=== PATIENT | female | born 1960 | race American Indian/Alaskan Native ===

== ENCOUNTER 2020-03-11 08:13 | Emergency (ER) | payer SELFPAY ==
--- NOTE | 2020-03-11 09:27 | Emergency Department Report ---
ED General Adult HPI - General Chief complaint: High BP Stated complaint: BACK PAIN Time Seen by Provider: 03/11/20 08:56 Source: patient Mode of arrival: Ambulatory Limitations: No Limitations - History of Present Illness Initial comments: This is a 59-year-old lady who came to the emergency department today because [facility] advised her since she does not live in the [facility] anymore she was in eligible for primary care through their clinic system. She states that she has had lower back pain intermittently since 2018. She had an MRI at that time which showed chronic spondylosis and some facet encroachment. She was managed by a chiropractor. She states she went to rehab. She denies any acute exacerbation of her chronic lower back pain. She denies any sensory or motor impairment chronically or acutely. She is fully able to ambulate. She really has no other specific complaint other than a lack of primary care and chronic intermittent low back pain. Patient states that she has been "rationing her medication" because she does not have a primary care doctor. Not withstanding that she does present to the emergency department with largely full bottles of medication. She has a history of hypertension and apparently type 2 diabetes on metformin. -: Gradual Location: back Radiation: non-radiation Quality: aching Consistency: constant, now resolved Improves with: none Worsens with: none Associated Symptoms: denies other symptoms Treatments Prior to Arrival: none - Related Data Home Medications Medication Instructions Recorded Confirmed Last Taken Aspirin [Adult Aspirin] 81 mg PO DAILY 03/11/20 03/11/20 Unknown Cholecalciferol Vit D3 [Vitamin D3 1,000 unit PO QDAY 03/11/20 03/11/20 Unknown 1,000 UNIT TAB] Esomeprazole Magnesium [Nexium 20 mg PO DAILY 03/11/20 03/11/20 Unknown 24Hr] Metformin HCl [metFORMIN] 1,000 mg PO BID 03/11/20 03/11/20 Unknown amLODIPine [Norvasc] 10 mg PO DAILY 03/11/20 03/11/20 Unknown atenoloL [Tenormin] 25 mg PO DAILY 03/11/20 03/11/20 Unknown lisinopriL [Zestril TAB] 40 mg PO QDAY 03/11/20 03/11/20 Unknown Previous Rx's Medication Instructions Recorded Last Taken Type traMADoL [Ultram 50 MG tab] 50 mg PO Q6HR PRN #10 tablet 03/11/20 Unknown Rx Allergies Allergy/AdvReac Type Severity Reaction Status Date / Time No Known Allergies Allergy Unverified 03/11/20 09:03 ED Review of Systems ROS: Stated complaint: BACK PAIN Other details as noted in HPI Constitutional: denies: chills, fever Eyes: denies: eye pain, eye discharge, vision change ENT: denies: ear pain, throat pain Respiratory: denies: cough, shortness of breath, wheezing Cardiovascular: denies: chest pain, palpitations Endocrine: no symptoms reported Gastrointestinal: denies: abdominal pain, nausea, diarrhea Genitourinary: denies: urgency, dysuria, discharge Musculoskeletal: back pain. denies: joint swelling, arthralgia Skin: denies: rash, lesions Neurological: denies: headache, weakness, paresthesias Psychiatric: denies: anxiety, depression Hematological/Lymphatic: denies: easy bleeding, easy bruising ED Past Medical Hx - Past Medical History Hx Hypertension: Yes Hx Diabetes: Yes - Social History Smoking Status: Current Every Day Smoker Substance Use Type: None - Medications Home Medications: Home Medications Medication Instructions Recorded Confirmed Last Taken Type Aspirin [Adult Aspirin] 81 mg PO DAILY 03/11/20 03/11/20 Unknown History Cholecalciferol Vit D3 [Vitamin D3 1,000 unit PO QDAY 03/11/20 03/11/20 Unknown History 1,000 UNIT TAB] Esomeprazole Magnesium [Nexium 20 mg PO DAILY 03/11/20 03/11/20 Unknown History 24Hr] Metformin HCl [metFORMIN] 1,000 mg PO BID 03/11/20 03/11/20 Unknown History amLODIPine [Norvasc] 10 mg PO DAILY 03/11/20 03/11/20 Unknown History atenoloL [Tenormin] 25 mg PO DAILY 03/11/20 03/11/20 Unknown History lisinopriL [Zestril TAB] 40 mg PO QDAY 03/11/20 03/11/20 Unknown History traMADoL [Ultram 50 MG tab] 50 mg PO Q6HR PRN #10 tablet 03/11/20 Unknown Rx ED Physical Exam - General Limitations: No Limitations General appearance: alert, in no apparent distress - Head Head exam: Present: atraumatic, normocephalic - Eye Eye exam: Present: normal appearance. Absent: scleral icterus - ENT ENT exam: Present: mucous membranes moist - Neck Neck exam: Present: normal inspection - Respiratory Respiratory exam: Present: normal lung sounds bilaterally. Absent: respiratory distress - Cardiovascular Cardiovascular Exam: Present: regular rate, normal rhythm. Absent: systolic murmur, diastolic murmur, rubs, gallop - GI/Abdominal GI/Abdominal exam: Present: soft, normal bowel sounds. Absent: distended, tenderness, guarding, rebound, rigid - Extremities Exam Extremities exam: Present: normal inspection, other (Straight leg raise is negative bilaterally). Absent: pedal edema, joint swelling, calf tenderness - Back Exam Back exam: Present: normal inspection, full ROM (Grossly normal). Absent: tenderness, CVA tenderness (R), CVA tenderness (L), muscle spasm, paraspinal tenderness, vertebral tenderness - Neurological Exam Neurological exam: Present: alert, oriented X3 - Psychiatric Psychiatric exam: Present: normal affect, normal mood - Skin Skin exam: Present: warm, dry, intact, normal color. Absent: rash ED Course Vital Signs 03/11/20 03/11/20 03/11/20 08:16 09:05 09:45 Temperature 97.2 F L Pulse Rate 75 63 58 L Respiratory 18 17 17 Rate Blood Pressure 227/104 Blood Pressure 227/104 188/100 163/83 [Right] O2 Sat by Pulse 100 100 100 Oximetry - Reevaluation(s) Reevaluation #1: Blood pressure spontaneously improved outside the acute reduction range. 03/11/20 09:31 ED Medical Decision Making - Lab Data Result diagrams: 03/11/20 09:13 03/11/20 09:13 Laboratory Results - last 24 hr 03/11/20 03/11/20 09:13 09:13 WBC 5.1 RBC 4.39 Hgb 14.1 Hct 40.9 MCV 93 MCH 32 MCHC 35 H RDW 12.7 L Plt Count 147 Lymph % (Auto) 42.9 H [place] % (Auto) 6.5 Eos % (Auto) 2.9 Baso % (Auto) 1.0 Lymph # 2.2 [place] # 0.3 Eos # 0.1 Baso # 0.0 Seg Neutrophils % 46.7 Seg Neutrophils # 2.4 Sodium 140 Potassium 4.2 Chloride 102.9 Carbon Dioxide 25 Anion Gap 16 BUN 26 H Creatinine 1.2 Estimated GFR 55 BUN/Creatinine Ratio 22 Glucose 116 H Calcium 10.1 Total Bilirubin 0.30 Direct Bilirubin < 0.2 Indirect Bilirubin 0.1 AST 20 ALT 20 Alkaline Phosphatase 86 Total Protein 7.2 Albumin 4.0 Albumin/Globulin Ratio 1.3 - EKG Data -: EKG Interpreted by Me EKG shows normal: sinus rhythm, axis, intervals, QRS complexes, ST-T waves Rate: normal - EKG Data Interpretation: nonspecific ST-T wave glo, LVH (suggested) Critical care attestation.: If time is entered above; I have spent that time in minutes in the direct care of this critically ill patient, excluding procedure time. ED Disposition Clinical Impression: Poorly-controlled hypertension Chronic lower back pain Qualifiers: Back pain laterality: unspecified Sciatica presence: without sciatica Qualified Code(s): M54.5 - Low back pain; G89.29 - Other chronic pain Disposition: DC-01 TO HOME OR SELFCARE Is pt being admited?: No Does the pt Need Aspirin: No Condition: Stable Instructions: Hypertension (ED), Back Pain (ED) Prescriptions: traMADoL [Ultram 50 MG tab] 50 mg PO Q6HR PRN #10 tablet PRN Reason: Pain Referrals: [facility] [Provider Group] - 3-5 Days Time of Disposition: 11:34
[2020-03-11] MEDS ORDERED: traMADol 50 MG TAB PO ONE (09:32)
[2020-03-11 09:42] LABS: Eosinophils # (Auto) 0.1 K/mm3 (0.0-0.4); Eosinophils % (Auto) 2.9 % (0.0-4.3); Hematocrit 40.9 % (30.3-42.9); Hemoglobin 14.1 gm/dl (10.1-14.3); Lymphocytes # (Auto) 2.2 K/mm3 (1.2-5.4); Lymphocytes % (Auto) 42.9 % (13.4-35.0); Mean Corpuscular HGB Conc 35 % (30-34); Mean Corpuscular Volume 93 fl (79-97); Monocytes # (Auto) 0.3 K/mm3 (0.0-0.8); Monocytes % (Auto) 6.5 % (0.0-7.3); Platelet Count 147 K/mm3 (140-440); Red Blood Count 4.39 M/mm3 (3.65-5.03); Red Cell Distribution Width 12.7 % (13.2-15.2)
--- NOTE | 2020-03-11 09:43 | XRay Report ---
CHEST 1 VIEW INDICATION: hypertension. COMPARISON: None FINDINGS: Support devices: None. Heart: Within normal limits. Lungs/Pleura: No acute air space or interstitial disease. Additional findings: None. IMPRESSION: No acute findings. Signer Name: Roger Spencer Jr, MD Signed: 03/11/2020 9:39 AM Workstation Name: [id number]
[2020-03-11 09:56] LABS: Alanine Aminotransferase 20 units/L (7-56); BUN/Creatinine Ratio 22; Bilirubin,Direct < 0.2 mg/dL (0-0.2); Blood Urea Nitrogen 26 mg/dL (7-17); Calcium 10.1 mg/dL (8.4-10.2); Hemolysis Index 5
[2020-03-11 11:50] VITALS: BP 172/83
== END 2020-03-11 11:50 | disposition home or self-care (01) ==
LOC: ED 08:13
DX: I10 Essential (primary) hypertension (principal); M54.5 Low back pain; G89.29 Other chronic pain; E11.9 Type 2 diabetes mellitus without complications; F17.200 Nicotine dependence, unspecified, uncomplicated; Z79.899 Other long term (current) drug therapy
CPT/HCPCS: 36415; 71045; 80048; 80076; 85025; 93005

== ENCOUNTER 2021-02-22 17:24 | Emergency (ER) | payer SELFPAY ==
[2021-02-22 23:15] LABS: Basophils # (Auto) 0.1 K/mm3 (0.0-0.1); Basophils % (Auto) 1.6 % (0.0-1.8); Eosinophils # (Auto) 0.1 K/mm3 (0.0-0.4); Eosinophils % (Auto) 2.4 % (0.0-4.3); Hematocrit 43.6 % (30.3-42.9); Hemoglobin 15.5 gm/dl (10.1-14.3); Lymphocytes # (Auto) 1.7 K/mm3 (1.2-5.4); Lymphocytes % (Auto) 31.2 % (13.4-35.0); Mean Corpuscular HGB Conc 35 % (30-34); Mean Corpuscular Volume 92 fl (79-97); Monocytes # (Auto) 0.4 K/mm3 (0.0-0.8); Platelet Count 164 K/mm3 (140-440); Red Blood Count 4.74 M/mm3 (3.65-5.03); Red Cell Distribution Width 12.6 % (13.2-15.2)
[2021-02-22 23:34] LABS: Calcium 10.3 mg/dL (8.4-10.2)
--- NOTE | 2021-02-22 23:39 | Emergency Department Report ---
ED General Adult HPI - General Chief complaint: Skin/Abscess/Foreign Body Stated complaint: (R) TOE BLISTER Time Seen by Provider: 02/22/21 21:38 Source: patient Mode of arrival: Ambulatory Limitations: No Limitations - History of Present Illness Initial comments: This is a 60-year-old female nontoxic, well nourished in appearance, no acute signs of distress presents to the ED with c/o of right in between fourth and fifth toe tinea pedis with some pain. Patient denies any trauma or injuries. Stated has this for the past 3 weeks. Otherwise denies any other complaints or symptoms. Patient denies any upper respiratory symptoms. Patient denies any shortness of breath, hemoptysis, fever, chills, nausea, vomiting, headache, stiff neck, numbness, tingling, abdominal pain. Patient denies any recent travels or long car rides. Patient denies any recent surgeries or any sick contacts. Patient denies any drug allergies. Patient stated has past medical history of DM and hypertension but not been taking her blood pressure and metformin medication for the past 2 weeks. -: week(s) Radiation: non-radiation Severity scale (0 -10): 0 Consistency: constant Improves with: none Worsens with: none Associated Symptoms: denies other symptoms. denies: confusion, chest pain, co ugh, diaphoresis, fever/chills, headaches, loss of appetite, malaise, nausea/vomiting, rash, seizure, shortness of breath, syncope, weakness Treatments Prior to Arrival: none - Related Data Home Medications Medication Instructions Recorded Confirmed Last Taken Aspirin [Adult Aspirin] 81 mg PO DAILY 03/11/20 03/11/20 Unknown Cholecalciferol Vit D3 [Vitamin D3 1,000 unit PO QDAY 03/11/20 03/11/20 Unknown 1,000 UNIT TAB] Esomeprazole Magnesium [Nexium 20 mg PO DAILY 03/11/20 03/11/20 Unknown 24Hr] amLODIPine [Norvasc] 10 mg PO DAILY 03/11/20 03/11/20 Unknown atenoloL [Tenormin] 25 mg PO DAILY 03/11/20 03/11/20 Unknown lisinopriL [Zestril TAB] 40 mg PO QDAY 03/11/20 03/11/20 Unknown Previous Rx's Medication Instructions Recorded Last Taken Type traMADoL [Ultram 50 MG tab] 50 mg PO Q6HR PRN #10 tablet 03/11/20 Unknown Rx Chlorthalidone [Thalitone] 25 mg PO QDAY #30 tablet 02/22/21 Unknown Rx Metformin HCl [metFORMIN] 1,000 mg PO BID #60 tab 02/22/21 Unknown Rx atenoloL [Tenormin] 25 mg PO DAILY #30 tab 02/22/21 Unknown Rx lisinopriL [Zestril TAB] 40 mg PO QDAY #30 tablet 02/22/21 Unknown Rx Clotrimazole 1%(Nf) [Lotrimin 1 applicatio TP BID #1 bottle 02/23/21 Unknown Rx Lotion] Allergies Allergy/AdvReac Type Severity Reaction Status Date / Time No Known Allergies Allergy Verified 02/22/21 20:45 ED Review of Systems ROS: Stated complaint: (R) TOE BLISTER Other details as noted in HPI Comment: All other systems reviewed and negative Constitutional: denies: chills, fever Eyes: denies: eye pain, eye discharge, vision change ENT: denies: ear pain, throat pain Respiratory: denies: cough, shortness of breath, wheezing Cardiovascular: denies: chest pain, palpitations Endocrine: no symptoms reported Gastrointestinal: denies: abdominal pain, nausea, diarrhea Genitourinary: denies: urgency, dysuria, discharge Musculoskeletal: denies: back pain, joint swelling, arthralgia Skin: denies: rash, lesions Neurological: denies: headache, weakness, paresthesias Psychiatric: denies: anxiety, depression Hematological/Lymphatic: denies: easy bleeding, easy bruising ED Past Medical Hx - Past Medical History Previous Medical History?: Yes Hx Hypertension: Yes Hx Diabetes: Yes - Social History Smoking Status: Current Every Day Smoker Substance Use Type: None - Medications Home Medications: Home Medications Medication Instructions Recorded Confirmed Last Taken Type Aspirin [Adult Aspirin] 81 mg PO DAILY 03/11/20 03/11/20 Unknown History Cholecalciferol Vit D3 [Vitamin D3 1,000 unit PO QDAY 03/11/20 03/11/20 Unknown History 1,000 UNIT TAB] Esomeprazole Magnesium [Nexium 20 mg PO DAILY 03/11/20 03/11/20 Unknown History 24Hr] amLODIPine [Norvasc] 10 mg PO DAILY 03/11/20 03/11/20 Unknown History atenoloL [Tenormin] 25 mg PO DAILY 03/11/20 03/11/20 Unknown History lisinopriL [Zestril TAB] 40 mg PO QDAY 03/11/20 03/11/20 Unknown History traMADoL [Ultram 50 MG tab] 50 mg PO Q6HR PRN #10 tablet 03/11/20 Unknown Rx Chlorthalidone [Thalitone] 25 mg PO QDAY #30 tablet 02/22/21 Unknown Rx Metformin HCl [metFORMIN] 1,000 mg PO BID #60 tab 02/22/21 Unknown Rx atenoloL [Tenormin] 25 mg PO DAILY #30 tab 02/22/21 Unknown Rx lisinopriL [Zestril TAB] 40 mg PO QDAY #30 tablet 02/22/21 Unknown Rx Clotrimazole 1%(Nf) [Lotrimin 1 applicatio TP BID #1 bottle 02/23/21 Unknown Rx Lotion] ED Physical Exam - General Limitations: No Limitations General appearance: alert, in no apparent distress - Head Head exam: Present: atraumatic, normocephalic - Eye Eye exam: Present: normal appearance - Neck Neck exam: Present: normal inspection, full ROM. Absent: tenderness, meningismus, lymphadenopathy - Respiratory Respiratory exam: Present: normal lung sounds bilaterally. Absent: respiratory distress, wheezes, rales, rhonchi, stridor, chest wall tenderness, accessory muscle use, decreased breath sounds, prolonged expiratory - Cardiovascular Cardiovascular Exam: Present: regular rate, normal rhythm, normal heart sounds. Absent: bradycardia, tachycardia, irregular rhythm, systolic murmur, diastolic murmur, rubs, gallop - GI/Abdominal GI/Abdominal exam: Present: soft, normal bowel sounds. Absent: distended, tenderness, guarding, rebound, rigid, diminished bowel sounds - Extremities Exam Extremities exam: Present: normal inspection, full ROM, normal capillary refill, other (right scaly rash with itching to right between 4th and 5th. no cellulitis or abscess. no swelling. non tenderness.). Absent: tenderness, joint swelling - Back Exam Back exam: Present: normal inspection, full ROM. Absent: tenderness, CVA tenderness (R), CVA tenderness (L), muscle spasm, paraspinal tenderness, vertebral tenderness, rash noted - Neurological Exam Neurological exam: Present: alert, oriented X3, normal gait - Psychiatric Psychiatric exam: Present: normal affect, normal mood - Skin Skin exam: Present: warm, dry, intact, normal color. Absent: rash ED Course Vital Signs 02/22/21 02/23/21 02/23/21 20:46 00:58 01:00 Temperature 98.0 F Pulse Rate 88 80 80 Respiratory 18 20 Rate Blood Pressure 230/132 185/90 Blood Pressure 185/90 [Left] O2 Sat by Pulse 98 99 Oximetry 02/23/21 02/23/21 01:05 01:30 Temperature 98.6 F Pulse Rate 80 86 Respiratory 20 Rate Blood Pressure 185/90 Blood Pressure 152/82 [Left] O2 Sat by Pulse 100 Oximetry - Reevaluation(s) Reevaluation #1: 02/22/21 23:40 Patient is speaking in full sentences with no signs of distress noted. - Consultations Consultation #1: 02/22/21 23:52 Patient has been consulted with Louis Ronquillo about patient history, physical exam, and labs and agrees to ED plan of care with repeat finger stick after treatment. Consultation #2: 02/23/21 01:31 Patient has been consulted with Louis Ronquillo about labs with repeat glucose and vitals and patient can be discharged with follow-up. ED Medical Decision Making - Lab Data Result diagrams: 02/22/21 22:34 02/22/21 22:34 Lab Results 02/22/21 02/22/21 02/23/21 Range/Units 22:34 22:34 00:47 WBC 5.5 (4.5-11.0) K/mm3 RBC 4.74 (3.65-5.03) M/mm3 Hgb 15.5 H (10.1-14.3) gm/dl Hct 43.6 H (30.3-42.9) % MCV 92 (79-97) fl MCH 33 H (28-32) pg MCHC 35 H (30-34) % RDW 12.6 L (13.2-15.2) % Plt Count 164 (140-440) K/mm3 Lymph % (Auto) 31.2 (13.4-35.0) % [place] % (Auto) 7.0 (0.0-7.3) % Eos % (Auto) 2.4 (0.0-4.3) % Baso % (Auto) 1.6 (0.0-1.8) % Lymph # (Auto) 1.7 (1.2-5.4) K/mm3 [place] # (Auto) 0.4 (0.0-0.8) K/mm3 Eos # (Auto) 0.1 (0.0-0.4) K/mm3 Baso # (Auto) 0.1 (0.0-0.1) K/mm3 Seg Neutrophils % 57.8 (40.0-70.0) % Seg Neutrophils # 3.2 (1.8-7.7) K/mm3 VBG pH 7.459 H (7.320-7.420) Sodium 134 L (137-145) mmol/L Potassium 4.5 (3.6-5.0) mmol/L Chloride 96.8 L (98-107) mmol/L Carbon Dioxide 24 (22-30) mmol/L Anion Gap 18 mmol/L BUN 18 H (7-17) mg/dL Creatinine 1.2 (0.6-1.2) mg/dL Estimated GFR 55 ml/min BUN/Creatinine Ratio 15 % Glucose 575 H* (65-100) mg/dL POC Glucose (70-105) mg/dL Calcium 10.3 H (8.4-10.2) mg/dL 02/23/21 Range/Units 01:26 WBC (4.5-11.0) K/mm3 RBC (3.65-5.03) M/mm3 Hgb (10.1-14.3) gm/dl Hct (30.3-42.9) % MCV (79-97) fl MCH (28-32) pg MCHC (30-34) % RDW (13.2-15.2) % Plt Count (140-440) K/mm3 Lymph % (Auto) (13.4-35.0) % [place] % (Auto) (0.0-7.3) % Eos % (Auto) (0.0-4.3) % Baso % (Auto) (0.0-1.8) % Lymph # (Auto) (1.2-5.4) K/mm3 [place] # (Auto) (0.0-0.8) K/mm3 Eos # (Auto) (0.0-0.4) K/mm3 Baso # (Auto) (0.0-0.1) K/mm3 Seg Neutrophils % (40.0-70.0) % Seg Neutrophils # (1.8-7.7) K/mm3 VBG pH (7.320-7.420) Sodium (137-145) mmol/L Potassium (3.6-5.0) mmol/L Chloride (98-107) mmol/L Carbon Dioxide (22-30) mmol/L Anion Gap mmol/L BUN (7-17) mg/dL Creatinine (0.6-1.2) mg/dL Estimated GFR ml/min BUN/Creatinine Ratio % Glucose (65-100) mg/dL POC Glucose 349 H (70-105) mg/dL Calcium (8.4-10.2) mg/dL - Medical Decision Making This is a 60-year-old female that presents with tinea pedis and noncompliant with hypertension medication. Patient is stable and was examined by me. There is no induration, fluctuance. No signs of abscess formation. Patient educated of hypertension and to take medication as prescribed. Instructed to take blood pressure 3 times daily and presented to primary care doctor in a diary. Labs has been obtained to rule out hypertensive emergency. Patient is notified of the lab results with no questions noted by the patient. Patient stated has been taking Chlorthelidone 25 mg daily, Atenolol 25 mg daily, and Lisinopril 40 mg daily. Patient received her dosage of her medications with IV insulin and normal saline in the ED. Repeat Finger stick decreased prior to discharge. Consulted with Louis Ronquillo and agrees to the ED plan of care and discharge with follow-up. According to ACEP: (1) in ED patients with asymptomatic marke dly elevated blood pressure, routine screening for acute target organ injury (eg, serum creatinine, urinalysis, ECG) is not required. (1) In patients with asymptomatic markedly elevated blood pressure, routine ED medical intervention is not required. Patient was referred to Follow-up with a primary care doctor in 3-5 days or if symptoms worsen and continue return to emergency room as soon as possible. At time of discharge, the patient does not seem toxic or ill in appearance. No acute signs of distress noted. Patient agrees to discharge treatment plan of care. No further questions noted by the patient. Critical care attestation.: If time is entered above; I have spent that time in minutes in the direct care of this critically ill patient, excluding procedure time. ED Disposition Clinical Impression: Tinea pedis of right foot, Noncompliance with medication regimen, Hyperglycemia HTN (hypertension) Qualifiers: Hypertension type: unspecified Qualified Code(s): I10 - Essential (primary) hypertension Diabetes mellitus Qualifiers: Diabetes mellitus type: type 2 Diabetes mellitus retirement insulin use: without retirement use Diabetes mellitus complication status: without complication Qualified Code(s): E11.9 - Type 2 diabetes mellitus without complications Disposition: 01 HOME / SELF CARE / HOMELESS Is pt being admited?: No Does the pt Need Aspirin: No Condition: Stable Instructions: Hypertension, Adult, [id number], Athlete's Foot, Diabetes Mellitus Type 2 in Adults (ED), Hypertension (ED) Additional Instructions: Follow-up with a primary care doctor in 3-5 days or if symptoms worsen and continue return to emergency room as soon as possible. Prescriptions: Clotrimazole 1%(Nf) [Lotrimin Lotion] 1 applicatio TP BID #1 bottle Metformin HCl [metFORMIN] 1,000 mg PO BID #60 tab atenoloL [Tenormin] 25 mg PO DAILY #30 tab Chlorthalidone [Thalitone] 25 mg PO QDAY #30 tablet lisinopriL [Zestril TAB] 40 mg PO QDAY #30 tablet Referrals: PRIMARY CAREMD [Referring] - 3-5 Days MIKE TAPIA MD [Staff Physician] - 3-5 Days Forms: Work/School Release Form(ED) Time of Disposition: 01:32
[2021-02-23] MEDS: SODIUM CHLORIDE 0.9% 1000 ML 1,000 ML IV ONE (00:59)
[2021-02-23] MEDS: INSULIN REGULAR, HUMAN 100 UNITS/1 ML IV ONE (01:00)
[2021-02-23 01:31] VITALS: BP 152/82
[2021-02-23] MEDS: atenoloL 25 MG TAB PO ONE (01:59)
[2021-02-23] MEDS: LISINOPRIL 20 MG TAB PO ONE (02:00)
[2021-02-23] MEDS: CHLORTHALIDONE 25 MG TAB PO ONE (02:00)
== END 2021-02-23 02:09 | disposition home or self-care (01) ==
LOC: ED 17:24
DX: B35.3 Tinea pedis (principal); I10 Essential (primary) hypertension; E11.65 Type 2 diabetes mellitus with hyperglycemia; F17.200 Nicotine dependence, unspecified, uncomplicated; Z79.82 Long term (current) use of aspirin; Z79.899 Other long term (current) drug therapy
CPT/HCPCS: 36415; 80048; 82805; 82962; 85025; 96361; 96374; 96375; 99283; J7030; J1815

== ENCOUNTER 2021-06-17 18:28 | Inpatient (IN) | payer OTHER ==
--- NOTE | 2021-06-17 18:44 | Emergency Department Report ---
ED General Adult HPI - General Chief complaint: Neuro Symptoms/Deficit Stated complaint: My mouth was twisted PUI?: No Time Seen by Provider: 06/17/21 18:40 Source: patient, RN notes reviewed, old records reviewed Mode of arrival: Ambulatory Limitations: No Limitations - History of Present Illness Initial comments: The patient was evaluated in the emergency department for symptoms described in the history of present illness. He/she was evaluated in the context of the global COVID-19 pandemic, which necessitated consideration that the patient might be at risk for infection with the virus that causes COVID-19. Institutional protocols and algorithms that pertain to the evaluation of patients at risk for COVID-19 are in a state of rapid change based on information released by regulatory bodies including the CDC and federal and state organizations. These policies and algorithms were followed during the patient's care in the emergency department. Please note that these policies, procedures and recommendations changed on a rapid basis. The patient is a 60-year-old female. She is not known to myself previously. S he is COVID-19 vaccinated. She reports her past medical history includes hypertension, tobacco use, and diabetes. She presents to the ER today with a complaint of feeling like her mouth was twisted. She reports that she felt like she noticed this after waking up at approximately 4:00 in the morning. It is now resolved. She denies physical pain. She feels like she is back to her baseline. She denies Covid symptoms. -: hour(s) Severity scale (0 -10): 0 Consistency: now resolved Improves with: none Worsens with: none - Related Data Home Medications Medication Instructions Recorded Confirmed Last Taken Aspirin [Adult Aspirin] 81 mg PO DAILY 03/11/20 03/11/20 Unknown Cholecalciferol Vit D3 [Vitamin D3 1,000 unit PO QDAY 03/11/20 03/11/20 Unknown 1,000 UNIT TAB] Esomeprazole Magnesium [Nexium 20 mg PO DAILY 03/11/20 03/11/20 Unknown 24Hr] amLODIPine [Norvasc] 10 mg PO DAILY 03/11/20 03/11/20 Unknown atenoloL [Tenormin] 25 mg PO DAILY 03/11/20 03/11/20 Unknown lisinopriL [Zestril TAB] 40 mg PO QDAY 03/11/20 03/11/20 Unknown Previous Rx's Medication Instructions Recorded Last Taken Type traMADoL [Ultram 50 MG tab] 50 mg PO Q6HR PRN #10 tablet 03/11/20 Unknown Rx Chlorthalidone [Thalitone] 25 mg PO QDAY #30 tablet 02/22/21 Unknown Rx Metformin HCl [metFORMIN] 1,000 mg PO BID #60 tab 02/22/21 Unknown Rx atenoloL [Tenormin] 25 mg PO DAILY #30 tab 02/22/21 Unknown Rx lisinopriL [Zestril TAB] 40 mg PO QDAY #30 tablet 02/22/21 Unknown Rx Clotrimazole 1%(Nf) [Lotrimin 1 applicatio TP BID #1 bottle 02/23/21 Unknown Rx Lotion] Allergies Allergy/AdvReac Type Severity Reaction Status Date / Time No Known Allergies Allergy Verified 02/22/21 20:45 ED Review of Systems ROS: Stated complaint: WEAKNESS Other details as noted in HPI Constitutional: denies: fever Eyes: denies: eye discharge, vision change ENT: denies: epistaxis Respiratory: other (Chronic cough) Cardiovascular: denies: chest pain Gastrointestinal: denies: abdominal pain Neurological: denies: weakness ED Past Medical Hx - Past Medical History Hx Hypertension: Yes Hx Diabetes: Yes - Social History Smoking Status: Current Every Day Smoker Substance Use Type: None - Medications Home Medications: Home Medications Medication Instructions Recorded Confirmed Last Taken Type Aspirin [Adult Aspirin] 81 mg PO DAILY 03/11/20 03/11/20 Unknown History Cholecalciferol Vit D3 [Vitamin D3 1,000 unit PO QDAY 03/11/20 03/11/20 Unknown History 1,000 UNIT TAB] Esomeprazole Magnesium [Nexium 20 mg PO DAILY 03/11/20 03/11/20 Unknown History 24Hr] amLODIPine [Norvasc] 10 mg PO DAILY 03/11/20 03/11/20 Unknown History atenoloL [Tenormin] 25 mg PO DAILY 03/11/20 03/11/20 Unknown History lisinopriL [Zestril TAB] 40 mg PO QDAY 03/11/20 03/11/20 Unknown History traMADoL [Ultram 50 MG tab] 50 mg PO Q6HR PRN #10 tablet 03/11/20 Unknown Rx Chlorthalidone [Thalitone] 25 mg PO QDAY #30 tablet 02/22/21 Unknown Rx Metformin HCl [metFORMIN] 1,000 mg PO BID #60 tab 02/22/21 Unknown Rx atenoloL [Tenormin] 25 mg PO DAILY #30 tab 02/22/21 Unknown Rx lisinopriL [Zestril TAB] 40 mg PO QDAY #30 tablet 02/22/21 Unknown Rx Clotrimazole 1%(Nf) [Lotrimin 1 applicatio TP BID #1 bottle 02/23/21 Unknown Rx Lotion] ED Physical Exam - General Limitations: No Limitations General appearance: alert, in no apparent distress - Head Head exam: Present: atraumatic, normocephalic - Eye Eye exam: Present: normal appearance, EOMI. Absent: nystagmus - ENT ENT exam: Present: normal exam, normal orophraynx, mucous membranes moist, normal external ear exam - Neck Neck exam: Present: normal inspection, full ROM. Absent: tenderness, meningismus - Respiratory Respiratory exam: Present: normal lung sounds bilaterally. Absent: respiratory distress, wheezes, rales, rhonchi, stridor, decreased breath sounds - Cardiovascular Cardiovascular Exam: Present: normal rhythm, bradycardia, normal heart sounds. Absent: tachycardia, irregular rhythm, systolic murmur, diastolic murmur, rubs, gallop - GI/Abdominal GI/Abdominal exam: Present: soft. Absent: distended, tenderness, guarding, pulsatile mass - Extremities Exam Extremities exam: Present: normal inspection, full ROM, other (2+ pulses noted in the bilateral upper and lower extremities. There is no palpable cord. negative Homans sign. Muscular compartments are soft. The pelvis is stable.). Absent: pedal edema, calf tenderness - Back Exam Back exam: Present: normal inspection, full ROM. Absent: tenderness, CVA tenderness (R), CVA tenderness (L), paraspinal tenderness, vertebral tenderness - Neurological Exam Neurological exam: Present: alert, oriented X3, normal gait, other (No facial droop. Tongue midline. Extraocular movements intact bilaterally. Facial sensation intact to light touch in V1, V2, V3 distribution bilaterally. 5 and a 5 strength in 4 extremities. Sensation intact to light touch in 4 extremities.). Absent: motor sensory deficit - Psychiatric Psychiatric exam: Present: flat affect - Skin Skin exam: Present: warm, dry, intact, normal color. Absent: rash ED Course Vital Signs 06/17/21 06/17/21 06/17/21 18:34 18:46 19:19 Temperature 98.6 F 98.3 F Pulse Rate 77 67 Respiratory 20 16 Rate Blood Pressure 191/93 159/88 [Right] O2 Sat by Pulse 10 L 97 Oximetry 06/17/21 19:45 Temperature Pulse Rate 70 Respiratory 13 Rate Blood Pressure 187/89 [Right] O2 Sat by Pulse 96 Oximetry - Reevaluation(s) Reevaluation #1: 06/17/21 20:35 Differential diagnosis, including but not limited to: Stroke, TIA, pneumonia, urinary tract infection, thyroid derangement, electrolyte derangement, tobacco use, hyperglycemia, diabetic ketoacidosis, hyperosmolar state Assessment and plan: 60-year-old female, who was afebrile and hypertensive, clinically sober, with a GCS of 15, NIH score of 0, who presents to the ER with a primary complaint of feeling like her mouth is twisted, and perhaps having had a speech disturbance. I do not appreciate any neurologic deficits or abnormalities on my examination. Patient reports that her last known well time is more than 4.5 hours after perceived symptom onset, and therefore, she is not a TPA candidate. She currently has an NIH score of 0, and her history and physical examination are not consistent or suggestive of a large vessel occlusion. Laboratory studies pending. X-ray the chest reviewed and appreciated. Noncontrast CT scan of the brain shows no acute findings. I discussed the patient's history, physical, and clinical impression with neurology on-call, Dr. Mauro He is in agreement with the aforementioned rationale. Admission is recommended for medical optimization. Patient will be admitted to the medical service once initial diagnostics have resulted. Allow for permissive hypertension, treat for blood pressure systolic greater than 180 mmHg. 06/17/21 21:04 Laboratory studies demonstrate hyperglycemia without anion gap and renal insufficiency. IV fluids ordered. Insulin therapy ordered. To be admitted to the medical service for optimization and for TIA work-up/evaluation. Defer to the inpatient team to follow-up on urinalysis. Reevaluation #2: 06/17/21 21:[address] Luis Mckee of [facility] ED Medical Decision Making - Lab Data Result diagrams: 06/17/21 19:58 06/17/21 19:58 Vital Signs 06/17/21 06/17/21 06/17/21 18:34 18:46 19:19 Temperature 98.6 F 98.3 F Pulse Rate 77 67 Respiratory 20 16 Rate Blood Pressure 191/93 159/88 [Right] O2 Sat by Pulse 10 L 97 Oximetry 06/17/21 19:45 Temperature Pulse Rate 70 Respiratory 13 Rate Blood Pressure 187/89 [Right] O2 Sat by Pulse 96 Oximetry Lab Results 06/17/21 Range/Units 18:32 POC Glucose 459 H (70-105) mg/dL Lab Results 06/17/21 06/17/21 06/17/21 Range/Units 18:32 19:58 19:58 WBC 6.0 (4.5-11.0) K/mm3 RBC 4.42 (3.65-5.03) M/mm3 Hgb 13.4 (10.1-14.3) gm/dl Hct 40.2 (30.3-42.9) % MCV 91 (79-97) fl MCH 30 (28-32) pg MCHC 33 (30-34) % RDW 12.7 L (13.2-15.2) % Plt Count 145 (140-440) K/mm3 Lymph % (Auto) 43.5 H (13.4-35.0) % Dougherty % (Auto) 5.9 (0.0-7.3) % Eos % (Auto) 1.8 (0.0-4.3) % Baso % (Auto) 0.6 (0.0-1.8) % Lymph # (Auto) 2.6 (1.2-5.4) K/mm3 Dougherty # (Auto) 0.4 (0.0-0.8) K/mm3 Eos # (Auto) 0.1 (0.0-0.4) K/mm3 Baso # (Auto) 0.0 (0.0-0.1) K/mm3 Seg Neutrophils % 48.2 (40.0-70.0) % Seg Neutrophils # 2.9 (1.8-7.7) K/mm3 PT 12.2 (12.2-14.9) Sec. INR 0.81 L (0.87-1.13) APTT 26.1 (24.2-36.6) Sec. Thrombin Time 17.6 (15.1-19.6) Sec. VBG pH (7.320-7.420) Sodium (137-145) mmol/L Potassium (3.6-5.0) mmol/L Chloride (98-107) mmol/L Carbon Dioxide (22-30) mmol/L Anion Gap mmol/L BUN (7-17) mg/dL Creatinine (0.6-1.2) mg/dL Estimated GFR ml/min BUN/Creatinine Ratio % Glucose (65-100) mg/dL POC Glucose 459 H (70-105) mg/dL Calcium (8.4-10.2) mg/dL Magnesium (1.7-2.3) mg/dL Total Bilirubin (0.1-1.2) mg/dL AST (5-40) units/L ALT (7-56) units/L Alkaline Phosphatase (35-129) units/L Total Creatine Kinase (30-135) units/L CK-MB (CK-2) (0.0-4.0) ng/mL CK-MB (CK-2) Rel Index (0-4) Troponin T (0.00-0.029) ng/mL Total Protein (6.3-8.2) g/dL Albumin (3.9-5) g/dL Albumin/Globulin Ratio % Plasma/Serum Alcohol (0-0.07) % 06/17/21 06/17/21 06/17/21 Range/Units 19:58 19:58 19:58 WBC (4.5-11.0) K/mm3 RBC (3.65-5.03) M/mm3 Hgb (10.1-14.3) gm/dl Hct (30.3-42.9) % MCV (79-97) fl MCH (28-32) pg MCHC (30-34) % RDW (13.2-15.2) % Plt Count (140-440) K/mm3 Lymph % (Auto) (13.4-35.0) % Dougherty % (Auto) (0.0-7.3) % Eos % (Auto) (0.0-4.3) % Baso % (Auto) (0.0-1.8) % Lymph # (Auto) (1.2-5.4) K/mm3 Dougherty # (Auto) (0.0-0.8) K/mm3 Eos # (Auto) (0.0-0.4) K/mm3 Baso # (Auto) (0.0-0.1) K/mm3 Seg Neutrophils % (40.0-70.0) % Seg Neutrophils # (1.8-7.7) K/mm3 PT (12.2-14.9) Sec. INR (0.87-1.13) APTT (24.2-36.6) Sec. Thrombin Time (15.1-19.6) Sec. VBG pH (7.320-7.420) Sodium 133 L (137-145) mmol/L Potassium 3.8 (3.6-5.0) mmol/L Chloride 98.7 (98-107) mmol/L Carbon Dioxide 22 (22-30) mmol/L Anion Gap 16 mmol/L BUN 21 H (7-17) mg/dL Creatinine 1.4 H (0.6-1.2) mg/dL Estimated GFR 46 ml/min BUN/Creatinine Ratio 15 % Glucose 492 H (65-100) mg/dL POC Glucose (70-105) mg/dL Calcium 9.3 (8.4-10.2) mg/dL Magnesium 1.90 (1.7-2.3) mg/dL Total Bilirubin 0.20 (0.1-1.2) mg/dL AST 18 (5-40) units/L ALT 27 (7-56) units/L Alkaline Phosphatase 119 (35-129) units/L Total Creatine Kinase 82 82 (30-135) units/L CK-MB (CK-2) 1.9 (0.0-4.0) ng/mL CK-MB (CK-2) Rel Index 2.3 (0-4) Troponin T 0.014 (0.00-0.029) ng/mL Total Protein 6.2 L (6.3-8.2) g/dL Albumin 3.3 L (3.9-5) g/dL Albumin/Globulin Ratio 1.1 % Plasma/Serum Alcohol < 0.01 (0-0.07) % 06/17/ Range/Units 19:58 WBC (4.5-11.0) K/mm3 RBC (3.65-5.03) M/mm3 Hgb (10.1-14.3) gm/dl Hct (30.3-42.9) % MCV (79-97) fl MCH (28-32) pg MCHC (30-34) % RDW (13.2-15.2) % Plt Count (140-440) K/mm3 Lymph % (Auto) (13.4-35.0) % Dougherty % (Auto) (0.0-7.3) % Eos % (Auto) (0.0-4.3) % Baso % (Auto) (0.0-1.8) % Lymph # (Auto) (1.2-5.4) K/mm3 Dougherty # (Auto) (0.0-0.8) K/mm3 Eos # (Auto) (0.0-0.4) K/mm3 Baso # (Auto) (0.0-0.1) K/mm3 Seg Neutrophils % (40.0-70.0) % Seg Neutrophils # (1.8-7.7) K/mm3 PT (12.2-14.9) Sec. INR (0.87-1.13) APTT (24.2-36.6) Sec. Thrombin Time (15.1-19.6) Sec. VBG pH 7.368 (7.320-7.420) Sodium (137-145) mmol/L Potassium (3.6-5.0) mmol/L Chloride (98-107) mmol/L Carbon Dioxide (22-30) mmol/L Anion Gap mmol/L BUN (7-17) mg/dL Creatinine (0.6-1.2) mg/dL Estimated GFR ml/min BUN/Creatinine Ratio % Glucose (65-100) mg/dL POC Glucose (70-105) mg/dL Calcium (8.4-10.2) mg/dL Magnesium (1.7-2.3) mg/dL Total Bilirubin (0.1-1.2) mg/dL AST (5-40) units/L ALT (7-56) units/L Alkaline Phosphatase (35-129) units/L Total Creatine Kinase (30-135) units/L CK-MB (CK-2) (0.0-4.0) ng/mL CK-MB (CK-2) Rel Index (0-4) Troponin T (0.00-0.029) ng/mL Total Protein (6.3-8.2) g/dL Albumin (3.9-5) g/dL Albumin/Globulin Ratio % Plasma/Serum Alcohol (0-0.07) % - EKG Data 06/17/21 20:33 The EKG is interpreted at 20: 11 Sinus rhythm, bradycardia, rate 59 bpm. Left axis deviation, left anterior fascicular block, early repolarization, left ventricular hypertrophy. QTC 4 6 3 ms. KS interval 124 ms. Abnormal EKG. Not a STEMI. - Radiology Data Radiology results: pending, report reviewed, image reviewed XR chest 1V ap INDICATION / CLINICAL INFORMATION: weakness. COMPARISON: None available. FINDINGS: SUPPORT DEVICES: None. HEART /PULMONARY VASCULATURE: No significant abnormality. LUNGS / PLEURA: Low lung volumes. No significant pulmonary or pleural abnormality. No pneumothorax. ADDITIONAL FINDINGS: No significant additional findings. IMPRESSION: 1. No acute findings. Signer Name: Josué Linares MD Signed: 06/17/2021 6:07 PM Workstation Name: [id number] CT BRAIN: 06/17/2021 INDICATION / CLINICAL INFORMATION: Stroke symptoms. No additional information provided COMPARISON: None available. FINDINGS: BRAIN/INTRACRANIAL STRUCTURES: Unenhanced CT images of the brain demonstrate no evidence of acute abnormality. Ventricles and sulci are slightly prominent in size, consistent with normal age-related atrophic change. There is no evidence of acute large vessel territory ischemic injury. Hypodensity in the left justin is present, consistent with subacute or chronic ischemic injury. There is a focal area of hypodensity present in the periphery of the cerebellar hemisphere, with the most likely chronic appearance. Chronic white matter hypoattenuation is present in the periventricular and deep white matter of cerebral hemispheres. There is no evidence of hemorrhage or mass. There are no abnormal extra-axial fluid collections. EXTRACRANIAL STRUCTURES: Unremarkable. IMPRESSION: No definite evidence of acute abnormality. Chronic appearing ischemic changes in the brainstem and cerebellum. No evidence of hemorrhage. Notification:Serotoff in the emergency department at [address] scans at this location are performed using dose reduction to ALARA by means of automated exposure control. Signer Name: Chuck Dave MD Signed: 06/17/2021 6:47 PM Critical care attestation.: If time is entered above; I have spent that time in minutes in the direct care of this critically ill patient, excluding procedure time. ED Disposition Clinical Impression: Hyperglycemia, TIA (transient ischemic attack), Renal insufficiency HTN (hypertension) Qualifiers: Hypertension type: unspecified Qualified Code(s): I10 - Essential (primary) hypertension Disposition: ADMITTED INPATIENT Is pt being admited?: Yes Does the pt Need Aspirin: Yes Condition: Good Instructions: Hypertension (ED) Referrals: PRIMARY CARE, [Primary Care Provider] - 3-5 Days - Assessment Assessment Interval: Baseline - Level of Consciousness 1a. Level of Consciousness: alert/keenly responsive - LOC Questions 1b. LOC Questions: answers both correctly - LOC Command 1c. LOC Commands: performs tasks correctly - Best Gaze 2. Best Gaze: normal - Visual 3. Visual: no visual loss - Facial Palsy 4. Facial Palsy: normal symmetrical movement - Motor Arm 5a. Motor Arm Left: no drift 5b. Motor Arm Right: no drift - Motor Leg 6a. Motor Leg Left: no drift 6b. Motor Leg Right: no drift - Limb Ataxia 7. Limb Ataxia: absent - Sensory 8. Sensory: normal - Best Language 9. Best Language: no aphasia - Dysarthria 10. Dysarthria: normal - Extinction and Inattention 11. Extinction/Inattention: no abnormality - Scoring Total Score: 0 Stroke Severity: No Stroke Symptoms
--- NOTE | 2021-06-17 18:57 | Consultation ---
History of Present Illness History of present illness: [facility] Consult Note # Demographics Consult Type: Acute Stroke Level 1 (0-4.5 hrs) Patient Location: Emergency Room First Name: Felipa Last Name: Jm Age: 60 Gender: Female Facility: [facility] Time of Initial Page (Eastern Time): 06/17/2021, 18:37 Time of Return Call (Eastern Time): 06/17/2021, 18:37 # HPI History: 60 year-old female woke up this morning at 4 AM feeling that the left side of her face felt twisted. Upon arrival to the ED, her NIHSS is 0. # Exam Vitals: vital signs reviewed # PMH-FH-SH Past Medical History: Diabetes # Assessment Impression: Left facial paresthesias - no focal or lateralizing deficits to suggest stroke, cannot exclude TIA # Plan Thrombolytic/Intervention: NOT IV Thrombolysis or IA Intervention candidate Thrombolytic Exclusion: > 4.5 hours Intraarterial Exclusion: non-disabling Imaging: (urgency: STAT): CT Head without contrast Other: I have discussed my recommendations with the referring provider Disposition: observation Medications and Allergies Allergies Allergy/AdvReac Type Severity Reaction Status Date / Time No Known Allergies Allergy Verified 02/22/21 20:45 Home Medications Medication Instructions Recorded Confirmed Last Taken Type Aspirin [Adult Aspirin] 81 mg PO DAILY 03/11/20 03/11/20 Unknown History Cholecalciferol Vit D3 [Vitamin D3 1,000 unit PO QDAY 03/11/20 03/11/20 Unknown History 1,000 UNIT TAB] Esomeprazole Magnesium [Nexium 20 mg PO DAILY 03/11/20 03/11/20 Unknown History 24Hr] amLODIPine [Norvasc] 10 mg PO DAILY 03/11/20 03/11/20 Unknown History atenoloL [Tenormin] 25 mg PO DAILY 03/11/20 03/11/20 Unknown History lisinopriL [Zestril TAB] 40 mg PO QDAY 03/11/20 03/11/20 Unknown History traMADoL [Ultram 50 MG tab] 50 mg PO Q6HR PRN #10 tablet 03/11/20 Unknown Rx Chlorthalidone [Thalitone] 25 mg PO QDAY #30 tablet 02/22/21 Unknown Rx Metformin HCl [metFORMIN] 1,000 mg PO BID #60 tab 02/22/21 Unknown Rx atenoloL [Tenormin] 25 mg PO DAILY #30 tab 02/22/21 Unknown Rx lisinopriL [Zestril TAB] 40 mg PO QDAY #30 tablet 02/22/21 Unknown Rx Clotrimazole 1%(Nf) [Lotrimin 1 applicatio TP BID #1 bottle 02/23/21 Unknown Rx Lotion] Physical Examination - Vital Signs Vital Signs: Vital Signs Pulse Resp BP Pulse Ox 77 20 191/93 10 L 06/17/21 18:34 06/17/21 18:34 06/17/21 18:34 06/17/21 18:34 Results - Laboratory Findings Abnormal Lab Findings: Abnormal Labs 06/17/21 18:32 POC Glucose 459 H
--- NOTE | 2021-06-17 19:12 | XRay Report ---
XR chest 1V ap INDICATION / CLINICAL INFORMATION: weakness. COMPARISON: None available. FINDINGS: SUPPORT DEVICES: None. HEART /PULMONARY VASCULATURE: No significant abnormality. LUNGS / PLEURA: Low lung volumes. No significant pulmonary or pleural abnormality. No pneumothorax. ADDITIONAL FINDINGS: No significant additional findings. IMPRESSION: 1. No acute findings. Signer Name: Josué Linares MD Signed: 06/17/2021 7:07 PM Workstation Name: [id number]
--- NOTE | 2021-06-17 19:51 | Cat Scan Report ---
CT BRAIN: 06/17/2021 INDICATION / CLINICAL INFORMATION: Stroke symptoms. No additional information provided COMPARISON: None available. FINDINGS: BRAIN/INTRACRANIAL STRUCTURES: Unenhanced CT images of the brain demonstrate no evidence of acute abn ormality. Ventricles and sulci are slightly prominent in size, consistent with normal age-related atrophic ayers ge. There is no evidence of acute large vessel territory ischemic injury. Hypodensity in the left justin is present, consistent with subacute or chronic ischemic injury. There is a focal area of hypodensity p resent in the periphery of the cerebellar hemisphere, with the most likely chronic appearance. Chronic white matter hypoattenuation is present in the periventricular and deep white matter of cereb ral hemispheres. There is no evidence of hemorrhage or mass. There are no abnormal extra-axial fluid collections. EXTRACRANIAL STRUCTURES: Unremarkable. IMPRESSION: No definite evidence of acute abnormality. Chronic appearing ischemic changes in the brainstem and c erebellum. No evidence of hemorrhage. Notification:Serotoff in the emergency department at [address] scans at this location are performed using dose reduction to ALARA by means of automated expos ure control. Signer Name: Chuck Dave MD Signed: 06/17/2021 7:47 PM Workstation Name: [id number]
[2021-06-17 20:36] LABS: Basophils % (Auto) 0.6 % (0.0-1.8); Eosinophils # (Auto) 0.1 K/mm3 (0.0-0.4); Eosinophils % (Auto) 1.8 % (0.0-4.3); Hematocrit 40.2 % (30.3-42.9); Hemoglobin 13.4 gm/dl (10.1-14.3); Lymphocytes # (Auto) 2.6 K/mm3 (1.2-5.4); Lymphocytes % (Auto) 43.5 % (13.4-35.0); Mean Corpuscular HGB Conc 33 % (30-34); Mean Corpuscular Volume 91 fl (79-97); Monocytes # (Auto) 0.4 K/mm3 (0.0-0.8); Monocytes % (Auto) 5.9 % (0.0-7.3); Platelet Count 145 K/mm3 (140-440); Red Blood Count 4.42 M/mm3 (3.65-5.03); Red Cell Distribution Width 12.7 % (13.2-15.2)
[2021-06-17] MEDS ORDERED: SODIUM CHLORIDE 0.9% 1000 ML 1,000 ML IV ONE (20:37)
[2021-06-17] MEDS ORDERED: hydrALAZINE 20 MG/1 ML INJ IV ONE (20:37)
[2021-06-17] MEDS ORDERED: ASPIRIN 81 MG TAB CHEW PO ONE (20:38)
[2021-06-17 20:46] LABS: INR 0.81 (0.87-1.13); Partial Thromboplastin Time 26.1 Sec. (24.2-36.6); Thrombin Time 17.6 Sec. (15.1-19.6)
[2021-06-17 20:53] LABS: Creatine Kinase MB 1.9 ng/mL (0.0-4.0)
[2021-06-17 20:54] LABS: Albumin 3.3 g/dL (3.9-5); Calcium 9.3 mg/dL (8.4-10.2)
[2021-06-17] MEDS ORDERED: INSULIN REGULAR, HUMAN 100 UNITS/1 ML IV ONE (21:03)
[2021-06-17] MEDS ORDERED: DEXTROSE 50% IN WATER (25GM) 50 ML SYRINGE IV PRN (21:46)
[2021-06-17] MEDS ORDERED: MORPHINE 4 MG/1 ML INJ IV PRN (21:46)
[2021-06-17] MEDS ORDERED: MAGNESIUM HYDROXIDE (MOM) ORAL LIQD UDC PO PRN (21:46)
[2021-06-17] MEDS ORDERED: ACETAMINOPHEN 325 MG TAB PO PRN (21:46)
[2021-06-17] MEDS ORDERED: ONDANSETRON 4 MG/2 ML INJ IV PRN (21:46)
[2021-06-17] MEDS ORDERED: MORPHINE 2 MG/1 ML INJ IV PRN (21:46)
--- NOTE | 2021-06-17 22:01 | History and Physical Report ---
History of Present Illness Date of examination: 06/17/21 Date of admission: 06/17/21 21:20 Chief complaint: Slurred speech History of present illness: 60-year-old female with known history of hypertension, diabetes mellitus who smokes tobacco on a daily basis presents to the emergency room today with's complaint of slurred speech sometime early this morning. She noticed difficulty with her speech at about 4 AM in the morning. She denies any headache or dizziness, no diaphoresis, no blurry vision, no nausea vomiting, no abdominal pain. She denies any fever or chills. No hematuria or dysuria. Patient denies any sick contacts and no recent travel. Denies any contact with anyone with COVID-19. Patient is fully vaccinated against COVID-19. Upon presentation in the emergency room symptoms had resolved. She feels she is back to her baseline. Work-up in the emergency room today CT scan of the head was negative. Labs were significant for hyperglycemia. She also had a elevated BUN and creatinine. Tele- neurologist was consulted for evaluation and recommendations to have patient worked up for TIA Past History Past Medical History: diabetes, hypertension Past Surgical History: No surgical history Social history: smoking (Current daily smoker) Family history: no significant family history Medications and Allergies Allergies Allergy/AdvReac Type Severity Reaction Status Date / Time No Known Allergies Allergy Verified 02/22/21 20:45 Home Medications Medication Instructions Recorded Confirmed Last Taken Type Aspirin [Adult Aspirin] 81 mg PO DAILY 03/11/20 03/11/20 Unknown History Cholecalciferol Vit D3 [Vitamin D3 1,000 unit PO QDAY 03/11/20 03/11/20 Unknown History 1,000 UNIT TAB] Esomeprazole Magnesium [Nexium 20 mg PO DAILY 03/11/20 03/11/20 Unknown History 24Hr] amLODIPine [Norvasc] 10 mg PO DAILY 03/11/20 03/11/20 Unknown History atenoloL [Tenormin] 25 mg PO DAILY 03/11/20 03/11/20 Unknown History lisinopriL [Zestril TAB] 40 mg PO QDAY 03/11/20 03/11/20 Unknown History traMADoL [Ultram 50 MG tab] 50 mg PO Q6HR PRN #10 tablet 03/11/20 Unknown Rx Chlorthalidone [Thalitone] 25 mg PO QDAY #30 tablet 02/22/21 Unknown Rx Metformin HCl [metFORMIN] 1,000 mg PO BID #60 tab 02/22/21 Unknown Rx atenoloL [Tenormin] 25 mg PO DAILY #30 tab 02/22/21 Unknown Rx lisinopriL [Zestril TAB] 40 mg PO QDAY #30 tablet 02/22/21 Unknown Rx Clotrimazole 1%(Nf) [Lotrimin 1 applicatio TP BID #1 bottle 02/23/21 Unknown Rx Lotion] Active Meds: Active Medications Acetaminophen (Acetaminophen 325 Mg Tab) 650 mg PO Q4H PRN PRN Reason: Pain MILD(1-3)/Fever >100.5/DEL TORO Dextrose (Dextrose 50% In Water (25gm) 50 Ml Syringe) 50 ml IV Q30MIN PRN; Protocol PRN Reason: Hypoglycemia Heparin Sodium (Porcine) (Heparin 5,000 Unit/1 Ml Vial) 5,000 unit SUB-Q Q8HR KAITLIN Insulin Human Lispro (Insulin Lispro 100 Unit/Ml) 0 unit SUB-Q ACHS KAITLIN; Protocol Magnesium Hydroxide (Magnesium Hydroxide (Mom) Oral Liqd Udc) 30 ml PO Q4H PRN PRN Reason: Constipation Morphine Sulfate (Morphine 2 Mg/1 Ml Inj) 2 mg IV Q4H PRN PRN Reason: Pain, Moderate (4-6) Morphine Sulfate (Morphine 4 Mg/1 Ml Inj) 4 mg IV Q4H PRN PRN Reason: Pain , Severe (7-10) Ondansetron HCl (Ondansetron 4 Mg/2 Ml Inj) 4 mg IV Q8H PRN PRN Reason: Nausea And Vomiting Sodium Chloride (Sodium Chloride 0.9% 10 Ml Flush Syringe) 10 ml IV BID KAITLIN Sodium Chloride (Sodium Chloride 0.9% 10 Ml Flush Syringe) 10 ml IV PRN PRN PRN Reason: LINE FLUSH Review of Systems Constitutional: no fever, no chills Ears, nose, mouth and throat: no nasal congestion, no sore throat Cardiovascular: no chest pain, no palpitations Respiratory: no cough, no shortness of breath Gastrointestinal: no nausea, no vomiting, no diarrhea Genitourinary Female: no pelvic pain, no flank pain, no dysuria, no hematuria Musculoskeletal: no neck pain, no low back pain Integumentary: no rash, no pruritis Neurological: no headaches, no confusion Psychiatric: no anxiety, no depression Endocrine: no polyphagia, no polydipsia, no polyuria, no nocturia Exam - Constitutional Vitals: Temp Pulse Resp BP Pulse Ox 98.3 F 75 19 182/86 100 06/17/21 19:19 06/17/21 21:31 06/17/21 21:31 06/17/21 21:31 06/17/21 21:31 General appearance: Present: no acute distress, well-nourished - EENT Eyes: Present: PERRL, EOM intact. Absent: scleral icterus ENT: hearing intact, clear oral mucosa, dentition normal - Neck Neck: Present: supple, normal ROM - Respiratory Respiratory effort: normal Respiratory: bilateral: CTA - Cardiovascular Rhythm: regular Heart Sounds: Present: S1 & S2. Absent: gallop, systolic murmur, diastolic murmur, rub, click - Extremities Extremities: no ischemia, pulses intact, pulses symmetrical, No edema, normal temperature, normal color, Full ROM Peripheral Pulses: within normal limits - Abdominal General gastrointestinal: Present: soft, non-tender, non-distended, normal bowel sounds. Absent: mass - Integumentary Integumentary: Present: clear, warm, dry, normal turgor. Absent: rash - Musculoskeletal Musculoskeletal: strength equal bilaterally - Psychiatric Psychiatric: appropriate mood/affect, intact judgment & insight, memory intact, cooperative - Neurologic Neurologic: CNII-XII intact, no focal deficits, moves all extremities HEART Score - HEART Score Troponin: Troponin T 0.014 ng/mL (0.00-0.029) 06/17/21 19:58 Results - Labs CBC & Chem 7: 06/17/21 19:58 06/17/21 19:58 Labs: Abnormal lab results 06/17/21 06/17/21 06/17/21 Range/Units 18:32 19:58 19:58 RDW 12.7 L (13.2-15.2) % Lymph % (Auto) 43.5 H (13.4-35.0) % INR 0.81 L (0.87-1.13) Sodium (137-145) mmol/L BUN (7-17) mg/dL Creatinine (0.6-1.2) mg/dL Glucose (65-100) mg/dL POC Glucose 459 H (70-105) mg/dL Total Protein (6.3-8.2) g/dL Albumin (3.9-5) g/dL 06/17/ Range/Units 19:58 RDW (13.2-15.2) % Lymph % (Auto) (13.4-35.0) % INR (0.87-1.13) Sodium 133 L (137-145) mmol/L BUN 21 H (7-17) mg/dL Creatinine 1.4 H (0.6-1.2) mg/dL Glucose 492 H (65-100) mg/dL POC Glucose (70-105) mg/dL Total Protein 6.2 L (6.3-8.2) g/dL Albumin 3.3 L (3.9-5) g/dL Assessment and Plan - Patient Problems (1) TIA (transient ischemic attack) Current Visit: Yes Status: Acute Plan to address problem: Patient admitted and placed on telemetry. We will schedule for carotid Doppler, MRI of the brain and echocardiogram. Patient placed on daily aspirin. Consult placed to neurology for evaluation. (2) HTN (hypertension) Current Visit: Yes Status: Acute Qualifiers: Hypertension type: unspecified Qualified Code(s): I10 - Essential (primary) hypertension Plan to address problem: We will resume routine home medications and monitor vital signs closely. (3) Hyperglycemia Current Visit: Yes Status: Acute Plan to address problem: Patient placed on sliding scale insulin. We will monitor Accu-Cheks closely. (4) DVT prophylaxis Current Visit: Yes Status: Acute Plan to address problem: Patient placed on subcutaneous heparin. (5) Full code status Current Visit: Yes Status: Acute Plan to address problem: Patient is full code.
[2021-06-17 23:44] LABS: Bacteria,Urine 1+ /HPF (Negative); Bilirubin,Urine NEG (Negative); Blood,Urine NEG (Negative); Color,Urine Straw (Yellow); RBC,Urine < 1.0 /HPF (0.0-6.0); Urobilinogen,Urine < 2.0 mg/dL (<2.0)
[2021-06-18] MEDS: HEPARIN 5,000 UNIT/1 ML VIAL SUB-Q SCH ×4 (00:34→22:15)
[2021-06-18] MEDS: INSULIN LISPRO 100 UNIT/ML SUB-Q SCH ×2 (00:35→23:07)
[2021-06-18 05:50] LABS: Basophils % (Auto) 0.6 % (0.0-1.8); Eosinophils # (Auto) 0.1 K/mm3 (0.0-0.4); Eosinophils % (Auto) 2.2 % (0.0-4.3); Hematocrit 40.5 % (30.3-42.9); Hemoglobin 13.6 gm/dl (10.1-14.3); Lymphocytes # (Auto) 2.4 K/mm3 (1.2-5.4); Lymphocytes % (Auto) 38.3 % (13.4-35.0); Mean Corpuscular HGB Conc 34 % (30-34); Mean Corpuscular Volume 92 fl (79-97); Monocytes # (Auto) 0.4 K/mm3 (0.0-0.8); Monocytes % (Auto) 6.9 % (0.0-7.3); Platelet Count 148 K/mm3 (140-440); Red Blood Count 4.42 M/mm3 (3.65-5.03); Red Cell Distribution Width 12.4 % (13.2-15.2)
[2021-06-18 06:09] LABS: Calcium 9.3 mg/dL (8.4-10.2)
--- NOTE | 2021-06-18 13:16 | Progress Note ---
Assessment and Plan Assessment and plan: #TIA -CT head unremarkable -TTE, MRI, Carotid doppler ordered -lipid panel, RPR, B12 ordered -patient symptoms resolved, continue neurochecks -Neurology consulted in ED, assistance appreciated #Hypertension -uncontrolled -patient has not had medications in the last 3 years -will restart chlorthalidone -will hold lisinopril to allow for permissive HTN while inpatient -goal SBP <170 #Type 2 Diabetes, uncontrolled #Medication non-compliance -A1C ordered -glucose in 400s on presentation -started SSI for now, will continue to monitor #Tobacco dependence -counseled on increased risk of stroke while smoking, benefits of cessation, patient voiced understanding. -Time +10 minutes -nicotine patch while inpatient Disposition Plan: continue medical management History Interval history: No acute events. Patient reports resolution of left-sided weakness and dysarthria. Reports not following up with PCP since moving to [place] 3 years ago. Also reports medication noncompliance. No complaints at this time. Hospitalist Physical - Physical exam Narrative exam: GENERAL: Well-developed well-nourished. In no acute distress. HEENT: Normocephalic. Atraumatic. NECK: Supple. CHEST/LUNGS: CTAB on room air HEART/CARDIOVASCULAR: RRR. No murmur, rubs or gallops appreciated. ABDOMEN: +BS. NT/ND. NEURO: No focal motor deficit. Follows all commands and is ambulatory. MUSCULOSKELETAL: No joint effusion EXTREMITIES: No cyanosis, clubbing or edema. PSYCH: Cooperative. - Constitutional Vitals: Temp Pulse Resp BP Pulse Ox 98.3 F 68 18 175/91 100 06/17/21 19:19 06/18/21 06:41 06/18/21 06:41 06/18/21 06:41 06/18/21 06:41 General appearance: Present: no acute distress, well-nourished HEART Score - HEART Score Troponin: Troponin T 0.014 ng/mL (0.00-0.029) 06/17/21 19:58 Results - Labs CBC & Chem 7: 06/18/21 05:37 06/18/21 05:37 Labs: Laboratory Last Values WBC 6.2 K/mm3 (4.5-11.0) 06/18/21 05:37 RBC 4.42 M/mm3 (3.65-5.03) 06/18/21 05:37 Hgb 13.6 gm/dl (10.1-14.3) 06/18/21 05:37 Hct 40.5 % (30.3-42.9) 06/18/21 05:37 MCV 92 fl (79-97) 06/18/21 05:37 MCH 31 pg (28-32) 06/18/21 05:37 MCHC 34 % (30-34) 06/18/21 05:37 RDW 12.4 % (13.2-15.2) L 06/18/21 05:37 Plt Count 148 K/mm3 (140-440) 06/18/21 05:37 Lymph % (Auto) 38.3 % (13.4-35.0) H 06/18/21 05:37 [place] % (Auto) 6.9 % (0.0-7.3) 06/18/21 05:37 Eos % (Auto) 2.2 % (0.0-4.3) 06/18/21 05:37 Baso % (Auto) 0.6 % (0.0-1.8) 06/18/21 05:37 Lymph # (Auto) 2.4 K/mm3 (1.2-5.4) 06/18/21 05:37 [place] # (Auto) 0.4 K/mm3 (0.0-0.8) 06/18/21 05:37 Eos # (Auto) 0.1 K/mm3 (0.0-0.4) 06/18/21 05:37 Baso # (Auto) 0.0 K/mm3 (0.0-0.1) 06/18/21 05:37 Seg Neutrophils % 52.0 % (40.0-70.0) 06/18/21 05:37 Seg Neutrophils # 3.2 K/mm3 (1.8-7.7) 06/18/21 05:37 PT 12.2 Sec. (12.2-14.9) 06/17/21 19:58 INR 0.81 (0.87-1.13) L 06/17/21 19:58 APTT 26.1 Sec. (24.2-36.6) 06/17/21 19:58 Thrombin Time 17.6 Sec. (15.1-19.6) 06/17/21 19:58 VBG pH 7.368 (7.320-7.420) 06/17/21 19:58 Sodium 139 mmol/L (137-145) 06/18/21 05:37 Potassium 3.7 mmol/L (3.6-5.0) 06/18/21 05:37 Chloride 102.5 mmol/L (98-107) 06/18/21 05:37 Carbon Dioxide 25 mmol/L (22-30) 06/18/21 05:37 Anion Gap 15 mmol/L 06/18/21 05:37 BUN 17 mg/dL (7-17) 06/18/21 05:37 Creatinine 1.2 mg/dL (0.6-1.2) 06/18/21 05:37 Estimated GFR 55 ml/min 06/18/21 05:37 BUN/Creatinine Ratio 14 % 06/18/21 05:37 Glucose 211 mg/dL (65-100) H 06/18/21 05:37 POC Glucose 194 mg/dL (70-105) H 06/18/21 00:20 Calcium 9.3 mg/dL (8.4-10.2) 06/18/21 05:37 Magnesium 1.90 mg/dL (1.7-2.3) 06/17/21 19:58 Total Bilirubin 0.20 mg/dL (0.1-1.2) 06/17/21 19:58 AST 18 units/L (5-40) 06/17/21 19:58 ALT 27 units/L (7-56) 06/17/21 19:58 Alkaline Phosphatase 119 units/L (35-129) 06/17/21 19:58 Total Creatine Kinase 82 units/L (30-135) 06/17/21 19:58 Total Creatine Kinase 82 units/L (30-135) 06/17/21 19:58 CK-MB (CK-2) 1.9 ng/mL (0.0-4.0) 06/17/21 19:58 CK-MB (CK-2) Rel Index 2.3 (0-4) 06/17/21 19:58 Troponin T 0.014 ng/mL (0.00-0.029) 06/17/21 19:58 Total Protein 6.2 g/dL (6.3-8.2) L 06/17/21 19:58 Albumin 3.3 g/dL (3.9-5) L 06/17/21 19:58 Albumin/Globulin Ratio 1.1 % 06/17/21 19:58 Urine Color Straw (Yellow) 06/17/21 22:49 Urine Turbidity Clear (Clear) 06/17/21 22:49 Urine pH 6.0 (5.0-7.0) 06/17/21 22:49 Ur Specific [place] 1.017 (1.003-1.030) 06/17/21 22:49 Urine Protein 30 mg/dl mg/dL (Negative) 06/17/21 22:49 Urine Glucose (UA) >=500 mg/dL (Negative) 06/17/21 22:49 Urine Ketones Neg mg/dL (Negative) 06/17/21 22:49 Urine Blood Neg (Negative) 06/17/21 22:49 Urine Nitrite Neg (Negative) 06/17/21 22:49 Urine Bilirubin Neg (Negative) 06/17/21 22:49 Urine Urobilinogen < 2.0 mg/dL (<2.0) 06/17/21 22:49 Ur Leukocyte Esterase Neg (Negative) 06/17/21 22:49 Urine WBC (Auto) 1.0 /HPF (0.0-6.0) 06/17/21 22:49 Urine RBC (Auto) < 1.0 /HPF (0.0-6.0) 06/17/21 22:49 U Epithel Cells (Auto) 4.0 /HPF (0-13.0) 06/17/21 22:49 Urine Bacteria (Auto) 1+ /HPF (Negative) 06/17/21 22:49 Plasma/Serum Alcohol < 0.01 % (0-0.07) 06/17/21 19:58 Active Medications - Current Medications Current Medications: Generic Name Dose Route Start Last Admin Trade Name Freq PRN Reason Stop Dose Admin Acetaminophen 650 mg 06/17/21 21:46 Acetaminophen 325 Mg Tab PO Q4H PRN Pain MILD(1-3)/Fever >100.5/DEL TORO Aspirin 325 mg 06/18/21 10:00 Aspirin 325 Mg Tab PO QDAY KAITLIN Atorvastatin Calcium 40 mg 06/17/21 22:00 06/18/21 00:35 Atorvastatin 40 Mg Tab PO 40 mg QHS KAITLIN Administration Dextrose 0 ml 06/17/21 21:46 Dextrose 50% In Water (25gm) 50 Ml Syringe IV Q30MIN PRN Hypoglycemia Protocol Heparin Sodium (Porcine) 5,000 unit 06/17/21 22:00 06/18/21 06:00 Heparin 5,000 Unit/1 Ml Vial SUB-Q Not Given Q8HR KAITLIN Insulin Human Lispro 0 unit 06/17/21 22:00 06/18/21 00:35 Insulin Lispro 100 Unit/Ml SUB-Q 2 unit ACHS KAITLIN Administration Protocol Magnesium Hydroxide 30 ml 06/17/21 21:46 Magnesium Hydroxide (Mom) Oral Liqd Udc PO Q4H PRN Constipation Morphine Sulfate 2 mg 06/17/21 21:46 Morphine 2 Mg/1 Ml Inj IV Q4H PRN Pain, Moderate (4-6) Morphine Sulfate 4 mg 06/17/21 21:46 Morphine 4 Mg/1 Ml Inj IV Q4H PRN Pain , Severe (7-10) Ondansetron HCl 4 mg 06/17/21 21:46 Ondansetron 4 Mg/2 Ml Inj IV Q8H PRN Nausea And Vomiting Sodium Chloride 10 ml 06/17/21 22:00 06/18/21 00:35 Sodium Chloride 0.9% 10 Ml Flush Syringe IV Not Given BID KAITLIN Sodium Chloride 10 ml 06/17/21 21:46 Sodium Chloride 0.9% 10 Ml Flush Syringe IV PRN PRN LINE FLUSH
[2021-06-18] MEDS: ASPIRIN 325 MG TAB PO SCH (20:30)
[2021-06-19] MEDS: INSULIN LISPRO 100 UNIT/ML SUB-Q SCH ×6 (03:11→21:54)
[2021-06-19] MEDS: CHLORTHALIDONE 25 MG TAB PO SCH ×2 (03:12→12:22)
[2021-06-19] MEDS: NICOTINE 14 MG/24 HR PATCH TD SCH ×2 (03:12→12:20)
[2021-06-19] MEDS: HEPARIN 5,000 UNIT/1 ML VIAL SUB-Q SCH ×3 (05:29→21:54)
[2021-06-19] MEDS ORDERED: hydrALAZINE 20 MG/1 ML INJ IV ONE (06:34)
--- NOTE | 2021-06-19 10:49 | Electrocardiograph Report ---
[facility] Test Date: 2021-06-17 Test Time: 20:11:40 Pat Name: MAURICE LANDAVERDE Department: Room: A469 Gender: F Communication Equipment Mechanic: JULIO : 1960 Requested By: KAREN DEMPSEY Order Number: [id number] Reading MD: Erin Jolly Measurements Intervals [place] Rate: 59 P: 63 WI: 124 QRS: -11 QRSD: 88 T: 232 QT: 467 QTc: 463 Interpretive Statements Sinus bradycardia LVH with secondary repolarization abnormality Anterior Q waves, possibly due to LVH No previous ECG available for comparison Electronically Signed On 06-19-2021 10:49:21 EST by Erin Jolly
[2021-06-19] MEDS: ASPIRIN 325 MG TAB PO SCH (12:21)
[2021-06-19] MEDS: NIFEdipine XL 30 MG TAB PO SCH (12:21)
[2021-06-19 12:47] LABS: Chol/HDL Ratio 5.83 %
--- NOTE | 2021-06-19 13:53 | Magnetic Resonance Report ---
MR brain wo con INDICATION / CLINICAL INFORMATION: 60 years Female; CVA r/o. TECHNIQUE: Multiplanar, multisequence MR images of the brain were obtained. COMPARISON: None available. FINDINGS: BRAIN / INTRACRANIAL CONTENTS: The motion degrades the image quality despite repeat imaging. However, there is an acute to infarct involving the superior left justin measuring 1.2 cm in greatest transvers e dimension. 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 The diffusion imaging reveals no evidence of acute supratentorial infarct. There is mild cerebral atrophy. The ventricular system is correspondingly appropriate in size and con figuration. No extra-axial fluid collections or significant mass effect is identified. CRANIOCERVICAL JUNCTION: No significant abnormality. 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 The intracranial ICAs grossly demonstrate appropriate signal voids. ORBITS: No significant abnormality of visualized orbits. SINUSES / MASTOIDS: No significant abnormality in the visualized paranasal sinuses or mastoid air anupam ls. ADDITIONAL FINDINGS: None. IMPRESSION: 1. There is a 1.2 cm acute infarct involving the superior left justin as detailed above. 2. 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 Signer Name: Clae Avery MD Signed: 06/19/2021 1:48 PM Workstation Name: [id number]
--- NOTE | 2021-06-19 14:44 | Vascular Lab Report ---
. DUPLEX DOPPLER ULTRASOUND CAROTID, BILATERAL INDICATION / CLINICAL INFORMATION: stroke. COMPARISON: None available. FINDINGS: RIGHT CAROTID: - PLAQUE ESTIMATE (%): < 50% - CCA velocity: 112 cm/sec. - ICA peak systolic velocity: 98 cm/sec. - ICA/CCA PSV Ratio: Less than 1 Right Vertebral Artery: Antegrade flow. LEFT CAROTID: - PLAQUE ESTIMATE: < 50% - CCA velocity: 50 cm/sec. - ICA peak systolic velocity: 45 cm/sec. - ICA/CCA PSV Ratio: Less than 1 Left Vertebral Artery: Antegrade flow. IMPRESSION: 1. Right Internal Carotid Artery: Less than 50% diameter stenosis. 2. Left Internal Carotid Artery: Less than 50% diameter stenosis. Velocity criteria are extrapolated from diameter data as defined by the Society of Radiologists in [facility] Consensus Conference, Radiology 2003; 229;340-346. NO STENOSIS (NORMAL) * Plaque = none; ICA PSV < 125 cm/sec; ICA/CCA PSV Ratio < 2.0 <50% STENOSIS * Plaque < 50%; ICA PSV < 125 cm/sec; ICA/CCA PSV Ratio < 2.0 50-69% STENOSIS * Plaque > 50%; ICA PSV = 125-230 cm/sec; ICA/CCA PSV Ratio = 2.0-4.0 >70% BUT <100% STENOSIS * Plaque > 50%; ICA PSV > 230 cm/sec; ICA/CCA PSV Ratio > 4.0 NEAR OCCLUSION * Plaque = visible lumen; ICA PSV = high/low/none; ICA/CCA PSV Ratio = variable TOTAL OCCLUSION * Plaque = no lumen; ICA PSV = none; ICA/CCA PSV Ratio = N/A Signer Name: Rainer Rascon MD Signed: 06/19/2021 2:39 PM Workstation Name: [employer]
--- NOTE | 2021-06-19 14:52 | Progress Note ---
Assessment and Plan Assessment and plan: #CVA -CT head unremarkable -TTE w/o PFO -MRI showed 1.2 cm acute infarct in the superior left justin -CTA head and neck ordered -carotid doppler ordered, read pending -lipid panel, RPR, B12 ordered -continue ASA + statin + Plavix -patient will benefit from close PCP follow up outpatient -Neurology following, assistance appreciated #Heart failure with reduced and preserved ejection fraction -No prior history; new diagnosis -Echocardiogram showed LVEF 40-45%, with diastolic dysfunction -will start losartan as part of GDMT and BP control #Hypertension -uncontrolled -patient has not had medications in the last 3 years -continue chlorthalidone and nifidepine -goal SBP <170 #Type 2 Diabetes, uncontrolled #Medication non-compliance -A1C 14.6% -patient reports taking 16 units of insulin qhs when it was prescribed to her -will start 12 units of lantus QHS -continue SSI #Tobacco dependence -counseled on increased risk of stroke while smoking, benefits of cessation, patient voiced understanding. -Time +10 minutes -nicotine patch while inpatient Disposition Plan: home with family once medically stable History Interval history: No acute events overnight. No complaints at this time. Hospitalist Physical - Physical exam Narrative exam: GENERAL: Well-developed well-nourished. In no acute distress. CHEST/LUNGS: CTAB on room air HEART/CARDIOVASCULAR: RRR. No murmur, rubs or gallops appreciated. ABDOMEN: +BS. NT/ND. NEURO: No focal motor deficit. Follows all commands and is ambulatory. MUSCULOSKELETAL: No joint effusion EXTREMITIES: No cyanosis, clubbing or edema. PSYCH: Cooperative. - Constitutional Vitals: Temp Pulse Resp BP Pulse Ox 98.6 F 88 18 190/87 98 06/19/21 03:44 06/19/21 12:00 06/19/21 03:44 06/19/21 03:44 06/19/21 11:07 General appearance: Present: no acute distress, well-nourished HEART Score - HEART Score Troponin: Troponin T 0.014 ng/mL (0.00-0.029) 06/17/21 19:58 Results - Labs CBC & Chem 7: 06/18/21 05:37 06/18/21 05:37 Labs: Laboratory Last Values WBC 6.2 K/mm3 (4.5-11.0) 06/18/21 05:37 RBC 4.42 M/mm3 (3.65-5.03) 06/18/21 05:37 Hgb 13.6 gm/dl (10.1-14.3) 06/18/21 05:37 Hct 40.5 % (30.3-42.9) 06/18/21 05:37 MCV 92 fl (79-97) 06/18/21 05:37 MCH 31 pg (28-32) 06/18/21 05:37 MCHC 34 % (30-34) 06/18/21 05:37 RDW 12.4 % (13.2-15.2) L 06/18/21 05:37 Plt Count 148 K/mm3 (140-440) 06/18/21 05:37 Lymph % (Auto) 38.3 % (13.4-35.0) H 06/18/21 05:37 Wheeler % (Auto) 6.9 % (0.0-7.3) 06/18/21 05:37 Eos % (Auto) 2.2 % (0.0-4.3) 06/18/21 05:37 Baso % (Auto) 0.6 % (0.0-1.8) 06/18/21 05:37 Lymph # (Auto) 2.4 K/mm3 (1.2-5.4) 06/18/21 05:37 Wheeler # (Auto) 0.4 K/mm3 (0.0-0.8) 06/18/21 05:37 Eos # (Auto) 0.1 K/mm3 (0.0-0.4) 06/18/21 05:37 Baso # (Auto) 0.0 K/mm3 (0.0-0.1) 06/18/21 05:37 Seg Neutrophils % 52.0 % (40.0-70.0) 06/18/21 05:37 Seg Neutrophils # 3.2 K/mm3 (1.8-7.7) 06/18/21 05:37 PT 12.2 Sec. (12.2-14.9) 06/17/21 19:58 INR 0.81 (0.87-1.13) L 06/17/21 19:58 APTT 26.1 Sec. (24.2-36.6) 06/17/21 19:58 Thrombin Time 17.6 Sec. (15.1-19.6) 06/17/21 19:58 VBG pH 7.368 (7.320-7.420) 06/17/21 19:58 Sodium 139 mmol/L (137-145) 06/18/21 05:37 Potassium 3.7 mmol/L (3.6-5.0) 06/18/21 05:37 Chloride 102.5 mmol/L (98-107) 06/18/21 05:37 Carbon Dioxide 25 mmol/L (22-30) 06/18/21 05:37 Anion Gap 15 mmol/L 06/18/21 05:37 BUN 17 mg/dL (7-17) 06/18/21 05:37 Creatinine 1.2 mg/dL (0.6-1.2) 06/18/21 05:37 Estimated GFR 55 ml/min 06/18/21 05:37 BUN/Creatinine Ratio 14 % 06/18/21 05:37 Glucose 211 mg/dL (65-100) H 06/18/21 05:37 POC Glucose 259 mg/dL (70-105) H 06/18/21 19:55 Hemoglobin A1c 14.6 % (4-6) H 06/18/21 05:37 Calcium 9.3 mg/dL (8.4-10.2) 06/18/21 05:37 Magnesium 1.90 mg/dL (1.7-2.3) 06/17/21 19:58 Total Bilirubin 0.20 mg/dL (0.1-1.2) 06/17/21 19:58 AST 18 units/L (5-40) 06/17/21 19:58 ALT 27 units/L (7-56) 06/17/21 19:58 Alkaline Phosphatase 119 units/L (35-129) 06/17/21 19:58 Total Creatine Kinase 82 units/L (30-135) 06/17/21 19:58 Total Creatine Kinase 82 units/L (30-135) 06/17/21 19:58 CK-MB (CK-2) 1.9 ng/mL (0.0-4.0) 06/17/21 19:58 CK-MB (CK-2) Rel Index 2.3 (0-4) 06/17/21 19:58 Troponin T 0.014 ng/mL (0.00-0.029) 06/17/21 19:58 Total Protein 6.2 g/dL (6.3-8.2) L 06/17/21 19:58 Albumin 3.3 g/dL (3.9-5) L 06/17/21 19:58 Albumin/Globulin Ratio 1.1 % 06/17/21 19:58 Triglycerides 209 mg/dL (2-149) H 06/19/21 11:36 Cholesterol 210 mg/dL (50-199) H 06/19/21 11:36 LDL Cholesterol Direct 151 mg/dL (50-130) H 06/19/21 11:36 HDL Cholesterol 36 mg/dL (40-59) L 06/19/21 11:36 Cholesterol/HDL Ratio 5.83 % 06/19/21 11:36 Vitamin B12 553.6 pg/mL (211-911) 06/19/21 11:36 TSH 0.543 mlU/mL (0.270-4.200) 06/19/21 11:36 Urine Color Straw (Yellow) 06/17/21 22:49 Urine Turbidity Clear (Clear) 06/17/21 22:49 Urine pH 6.0 (5.0-7.0) 06/17/21 22:49 Ur Specific [place] 1.017 (1.003-1.030) 06/17/21 22:49 Urine Protein 30 mg/dl mg/dL (Negative) 06/17/21 22:49 Urine Glucose (UA) >=500 mg/dL (Negative) 06/17/21 22:49 Urine Ketones Neg mg/dL (Negative) 06/17/21 22:49 Urine Blood Neg (Negative) 06/17/21 22:49 Urine Nitrite Neg (Negative) 06/17/21 22:49 Urine Bilirubin Neg (Negative) 06/17/21 22:49 Urine Urobilinogen < 2.0 mg/dL (<2.0) 06/17/21 22:49 Ur Leukocyte Esterase Neg (Negative) 06/17/21 22:49 Urine WBC (Auto) 1.0 /HPF (0.0-6.0) 06/17/21 22:49 Urine RBC (Auto) < 1.0 /HPF (0.0-6.0) 06/17/21 22:49 U Epithel Cells (Auto) 4.0 /HPF (0-13.0) 06/17/21 22:49 Urine Bacteria (Auto) 1+ /HPF (Negative) 06/17/21 22:49 Plasma/Serum Alcohol < 0.01 % (0-0.07) 06/17/21 19:58 Syphilis IgG Antibody Reactive (NonReactive) A 06/19/21 11:36 Pitts/IV: Voiding Method Toilet Active Medications - Current Medications Current Medications: Generic Name Dose Route Start Last Admin Trade Name Freq PRN Reason Stop Dose Admin Acetaminophen 650 mg 06/17/21 21:46 Acetaminophen 325 Mg Tab PO Q4H PRN Pain MILD(1-3)/Fever >100.5/DEL TORO Aspirin 325 mg 06/18/21 10:00 06/19/21 12:21 Aspirin 325 Mg Tab PO 325 mg QDAY KAITLIN Administration Atorvastatin Calcium 40 mg 06/17/21 22:00 06/18/21 23:07 Atorvastatin 40 Mg Tab PO 40 mg QHS KAITLIN Administration Chlorthalidone 25 mg 06/18/21 14:00 06/19/21 12:22 Chlorthalidone 25 Mg Tab PO Not Given QDAY KAITLIN Clopidogrel Bisulfate 75 mg 06/19/21 14:00 Clopidogrel 75 Mg Tab PO 07/09/21 10:01 QDAY KAITLIN Dextrose 0 ml 06/17/21 21:46 Dextrose 50% In Water (25gm) 50 Ml Syringe IV Q30MIN PRN Hypoglycemia Protocol Heparin Sodium (Porcine) 5,000 unit 06/17/21 22:00 06/19/21 05:29 Heparin 5,000 Unit/1 Ml Vial SUB-Q 5,000 unit Q8HR KAITLIN Administration Insulin Human Lispro 0 unit 06/17/21 22:00 06/19/21 08:42 Insulin Lispro 100 Unit/Ml SUB-Q Not Given ACHS [facility] Protocol Magnesium Hydroxide 30 ml 06/17/21 21:46 Magnesium Hydroxide (Mom) Oral Liqd Udc PO Q4H PRN Constipation Morphine Sulfate 2 mg 06/17/21 21:46 Morphine 2 Mg/1 Ml Inj IV Q4H PRN Pain, Moderate (4-6) Morphine Sulfate 4 mg 06/17/21 21:46 Morphine 4 Mg/1 Ml Inj IV Q4H PRN Pain , Severe (7-10) Nicotine 14 mg 06/18/21 15:00 06/19/21 12:20 Nicotine 14 Mg/24 Hr Patch TD Not Given QDAY KAITLIN Nifedipine 30 mg 06/19/21 10:00 06/19/21 12:21 Nifedipine Xl 30 Mg Tab PO 30 mg QDAY KAITLIN Administration Ondansetron HCl 4 mg 06/17/21 21:46 Ondansetron 4 Mg/2 Ml Inj IV Q8H PRN Nausea And Vomiting Sodium Chloride 10 ml 06/17/21 22:00 06/19/21 12:25 Sodium Chloride 0.9% 10 Ml Flush Syringe IV 10 ml BID KAITLIN Administration Sodium Chloride 10 ml 06/17/21 21:46 Sodium Chloride 0.9% 10 Ml Flush Syringe IV PRN PRN LINE FLUSH Nutrition/Malnutrition Assess - Dietary Evaluation Nutrition/Malnutrition Findings: Nutrition Notes Start: 06/19/21 14:46 Freq: Status: Active Protocol: Document 06/19/21 14:46 KENN (Rec: 06/19/21 14:50 KENN [email or web address]) Nutrition Notes Need for Assessment generated from: MD Order,Education Initial or Follow up Brief Note Current Diagnosis Diabetes,Hypertension Other Pertinent Diagnosis TIA, Tobacco dependency Current Diet Cardiac/Consistent CHO Labs/Tests A1C 14.6 Subjective/Other Information RD consulted for diet education. Pt says she moved from [facility] to [facility] 3 yrs ago and had no available resources; she received all of her care from [facility] and says she had no where to go when she moved to [facility]. She has not had any medications for the past 3 yrs. She was diagnosed with DM 10 yrs ago and is familiar with food sources of CHO. She says her also had a stroke and she takes care of him. She denies the need for diet education at this time, but is happy that she has resources for medication now. Burn Absent Trauma Absent Minimum of two criteria No Nutrition Intervention Revisit per MD consult or patient Sign Off request:
--- NOTE | 2021-06-19 15:53 | Consultation ---
History of Present Illness Consult date: 06/19/21 Reason for Consult: TIA Chief complaint: Slurred Speech History of present illness: 60 yo female with htn, dm, hld, tobacco abuse, noncompliance who presents with a LKNOrmal time of 8 pm before she went to bed and then waking up around 4 am to note that her face felt twisted and her words were coming out slurred. Then she started walking and noticed that her left leg was slightly daring. She presented outside the tpa window. Currently, she feels like she has improved but feels like there is till a slight slurring of her speech even now. She notes that she has not been compliant with her medications secondary to limited resources and access when [facility] near [place]. Of note, patient notes that one week prior, she felt like her left leg foot was slightly weak but it improved on its's own. Past History Past Medical History: diabetes, hypertension Past Surgical History: No surgical history Social history: smoking (Current daily smoker) Family history: no significant family history Medications and Allergies Allergies Allergy/AdvReac Type Severity Reaction Status Date / Time No Known Allergies Allergy Verified 06/19/21 14:47 Home Medications Medication Instructions Recorded Confirmed Last Taken Type Aspirin [Adult Aspirin] 81 mg PO DAILY 03/11/20 06/19/21 06/15/21 History Cholecalciferol Vit D3 [Vitamin D3 1,000 unit PO QDAY 03/11/20 06/19/21 06/15/21 History 1,000 UNIT TAB] Esomeprazole Magnesium [Nexium 20 mg PO DAILY 03/11/20 06/19/21 06/15/21 History 24Hr] amLODIPine [Norvasc] 10 mg PO DAILY 03/11/20 06/19/21 06/15/21 History Chlorthalidone [Thalitone] 25 mg PO QDAY #30 tablet 02/22/21 06/19/21 06/15/21 Rx Metformin HCl [metFORMIN] 1,000 mg PO BID #60 tab 02/22/21 06/19/21 06/15/21 Rx atenoloL [Tenormin] 25 mg PO DAILY #30 tab 02/22/21 06/19/21 06/15/21 Rx lisinopriL [Zestril TAB] 40 mg PO QDAY #30 tablet 02/22/21 06/19/21 06/15/21 Rx Active Meds: Active Medications Acetaminophen (Acetaminophen 325 Mg Tab) 650 mg PO Q4H PRN PRN Reason: Pain MILD(1-3)/Fever >100.5/DEL TORO Aspirin (Aspirin 325 Mg Tab) 325 mg PO QDAY [facility] Last Admin: 06/19/21 12:21 Dose: 325 mg Documented by: Atorvastatin Calcium (Atorvastatin 40 Mg Tab) 40 mg PO QHS [facility] Last Admin: 06/18/21 23:07 Dose: 40 mg Documented by: Chlorthalidone (Chlorthalidone 25 Mg Tab) 25 mg PO QDAY [facility] Last Admin: 06/19/21 12:22 Dose: Not Given Documented by: Clopidogrel Bisulfate (Clopidogrel 75 Mg Tab) 75 mg PO QDAY [facility] Stop: 07/09/21 10:01 Dextrose (Dextrose 50% In Water (25gm) 50 Ml Syringe) 0 ml IV Q30MIN PRN; Protocol PRN Reason: Hypoglycemia Heparin Sodium (Porcine) (Heparin 5,000 Unit/1 Ml Vial) 5,000 unit SUB-Q Q8HR [facility] Last Admin: 06/19/21 05:29 Dose: 5,000 unit Documented by: Insulin Glargine (Insulin Glargine 100 Units/Ml) 12 units SUB-Q QHS [facility] Insulin Human Lispro (Insulin Lispro 100 Unit/Ml) 0 unit SUB-Q [facility]; Protocol Last Admin: 06/19/21 15:14 Dose: Not Given Documented by: Losartan Potassium (Losartan 25 Mg Tab) 12.5 mg PO QDAY [facility] Magnesium Hydroxide (Magnesium Hydroxide (Mom) Oral Liqd Udc) 30 ml PO Q4H PRN PRN Reason: Constipation Morphine Sulfate (Morphine 2 Mg/1 Ml Inj) 2 mg IV Q4H PRN PRN Reason: Pain, Moderate (4-6) Morphine Sulfate (Morphine 4 Mg/1 Ml Inj) 4 mg IV Q4H PRN PRN Reason: Pain , Severe (7-10) Nicotine (Nicotine 14 Mg/24 Hr Patch) 14 mg TD QDAY [facility] Last Admin: 06/19/21 12:20 Dose: Not Given Documented by: Nifedipine (Nifedipine Xl 30 Mg Tab) 30 mg PO QDAY [facility] Last Admin: 06/19/21 12:21 Dose: 30 mg Documented by: Ondansetron HCl (Ondansetron 4 Mg/2 Ml Inj) 4 mg IV Q8H PRN PRN Reason: Nausea And Vomiting Sodium Chloride (Sodium Chloride 0.9% 10 Ml Flush Syringe) 10 ml IV BID KAITLIN Last Admin: 06/19/21 12:25 Dose: 10 ml Documented by: Sodium Chloride (Sodium Chloride 0.9% 10 Ml Flush Syringe) 10 ml IV PRN PRN PRN Reason: LINE FLUSH Review of Systems All systems: negative (as per HPI;) Physical Examination - Vital Signs Vital Signs: Vital Signs Pulse Resp BP Pulse Ox 77 20 191/93 10 L 06/17/21 18:34 06/17/21 18:34 06/17/21 18:34 06/17/21 18:34 - Physical Exam Narrative exam: Gen: nad, well-nourished; Head: normocephalic; Eyes: no gaze deviation; no ptosis; ENT: normal vocalization; CVS: warm and well-perfused; Pulm: no respiratory distress; GI: appears non-distended; Ext: no cyanosis appreciated at distal extremities; Skin: no acute rash at distal extremities; Heme: no pathologic ecchymosis appreciated at distal extremities; Neuro: alert, oriented to name, age, month, year, surroundings, slight dysarthria, no aphasia, CN 2 - PERRL, visual carl grossly intact, CN 3, 4, 6 - EOMI, CN 5 - facial sensation symmetric to light touch, CN 7 - facial movement symmetric, except mild left orolabial droop CN 8 - hearing grossly intact, CN 9, 10 - uvula midline, CN 11 - shrug symmetric, CN 12 - tongue midline; Motor - at least 4+/5 at left exts; at least 4/5 at right exts; Sensory - light touch symmetric, Cerebellar - fnf /hts intact, Gait - deferred secondary to fall risk; NIHSS (1a.) Level of Consciousness:0 (1b.) LOC Questions:0 (1c.) LOC Commands:0 (2.) Best Gaze:0 (3.) Visual:0 (4.) Facial Palsy:0 (5a.) Motor Arm, Left:0 (5b.) Motor Arm, Right:0 (6a.) Motor Leg, Left:0 (6b.) Motor Leg, Right:0 (7.) Limb Ataxia:0 (8.) Sensory:0 (9.) Best Language:0 (10.) Dysarthria:1 (11.) Extinction and Inattention:0 NIHSS Total Score: 1 Pre- Event Modified Adrian Scale: 0: No symptoms at all Results - Laboratory Findings CBC and BMP: 06/18/21 05:37 06/18/21 05:37 Abnormal Lab Findings: Abnormal Labs 06/17/21 06/17/21 06/17/21 18:32 19:58 19:58 RDW 12.7 L Lymph % (Auto) 43.5 H INR 0.81 L Sodium BUN Creatinine Glucose POC Glucose 459 H Hemoglobin A1c Total Protein Albumin Triglycerides Cholesterol LDL Cholesterol Direct HDL Cholesterol Syphilis IgG Antibody 06/17/21 06/18/21 06/18/21 19:58 00:20 05:37 RDW 12.4 L Lymph % (Auto) 38.3 H INR Sodium 133 L BUN 21 H Creatinine 1.4 H Glucose 492 H POC Glucose 194 H Hemoglobin A1c Total Protein 6.2 L Albumin 3.3 L Triglycerides Cholesterol LDL Cholesterol Direct HDL Cholesterol Syphilis IgG Antibody 06/18/21 06/18/21 06/18/21 05:37 05:37 19:55 RDW Lymph % (Auto) INR Sodium BUN Creatinine Glucose 211 H POC Glucose 259 H Hemoglobin A1c 14.6 H Total Protein Albumin Triglycerides Cholesterol LDL Cholesterol Direct HDL Cholesterol Syphilis IgG Antibody 06/19/21 06/19/21 11:36 11:36 RDW Lymph % (Auto) INR Sodium BUN Creatinine Glucose POC Glucose Hemoglobin A1c Total Protein Albumin Triglycerides 209 H Cholesterol 210 H LDL Cholesterol Direct 151 H HDL Cholesterol 36 L Syphilis IgG Antibody Reactive A Assessment and Plan 60 yo female with htn, dm, hld, tobacco abuse, noncompliance who presents with a LKNOrmal time of 8 pm before she went to bed and then waking up around 4 am to note that her face felt twisted and her words were coming out slurred. MR Brain reveals an acute left pontine infarction. 1. Acute ischemic stroke (lacunar stroke) - ASA 325 mg PO qday, Plavix 75 g po qday x 21 days; nihss q4 hours x 48 hours and then 18 hours x 24 hours; CTA Head/Neck w/ & w/o contrast, TTEcho, elevated LDL; confirm HgbA1C/TSH/Covid- 19/UDS, telemetry, NIHSS q4 hours; SBP goal 160-200 mmHg and DBP 80-100 mmHg for 48 more hours Statin therapy for a goal LDL of 70, when patient passes swallow evaluation. PT/OT/ST/Swallow evaluation. Long-term risk-factor modification, including a strict diet/exercise regimen for secondary stroke prophylaxis. 2. Acute Right hemiparesis - pt/ot evaluation/monitoring. 3. Acute Dysarthria - st evaluation/monitoring 4. Htn - sbp 160-200 mmHg / DBP 80-100 mmHg for 48 more hours. 5. DM - maintain euglcyemia; long-term with medications, diet, and exercise, as tolerated. 6. Hyperlipidemia - goal ldl of 70. 7. Tobacco Abuse - smoking cessation via pcp. 8. Noncompliace - due to lack of resources that occurred due [place]; recommend social work / case management. Shankar Hernandez MD Neurology [id number]
[2021-06-19] MEDS: LOSARTAN 25 MG TAB PO SCH (16:33)
[2021-06-19] MEDS: CLOPIDOGREL 75 MG TAB PO SCH (16:33)
--- NOTE | 2021-06-19 18:56 | Cat Scan Report ---
CTA neck without and with intravenous contrast material CLINICAL HISTORY: tia TECHNIQUE: Following acquisition of a timing bolus 0.625 mm thick contiguous axial scans were obtained from aort ic arch to the skull base during rapid bolus intravenous contrast infusion. In addition to evaluation of axial source images multiplanar reconstructions were produced and reviewed for this report. 3 valerie ne MIP reconstructions were produced and reviewed. Contrast dose report: Omnipaque 300: ml, administered intravenously All CT examinations performed at this facility utilize modulated dose reduction, iterative reconstruc tion or weight-based dosing, as appropriate, to obtain a radiation dose which is as low as can reason ably be achieved. FINDINGS: Thoracic aorta:No abnormalities are identified along the course of the thoracic aorta..The origins of the great vessels have an unremarkable appearance. Brachiocephalic artery, left common carotid arter y origin and left subclavian artery all have an unremarkable appearance. Right carotid artery:No abnormalities are seen along the course of the RCCA, at the right carotid bif urcation or along the cervical portions of the RUBIA. Left carotid artery: No abnormalities are noted along the course of the left common carotid artery, a t the left carotid bifurcation or along the course of the cervical segments of the LICA. Posterior circulation:The vertebral arteries have an unremarkable appearance. Both vertebral arteries contribute to the basilar artery origin. The basilar artery has an unremarkable appearance. The degree of stenosis, if any, is determined utilizing NASCET like criteria. In this case there is no indication of hemodynamically significant stenosis at the carotid bifurcations or elsewhere. There is a 2 cm diameter mass projecting inferiorly from the. Correlation with dedicated thyroid ultr asound is advised. Evaluation of the nonvascular soft tissue structures reveal no additional abnormality. There is no in dication of cervical lymphadenopathy. No abnormalities are seen along the course of the airway. Visua lized portions of the parotid glands and the submandibular salivary glands have a normal appearance.. Evaluation of the lung apices reveals no evidence of lung nodule or infiltrate. Evaluation of the cervical spine is remarkable for cervical spondylosis with loss of disc height and anterior osteophyte formation at the IMPRESSION: C5-6 and C6-7 levels. Central spinal canal and neuroforamina are adequately maintained. 1. No indication of hemodynamically significant stenosis at the carotid bifurcations or elsewhere. 2. Incidental thyroid nodule in the thyroid isthmus measuring 2 cm in a patient greater than age 35. Recommendation based on ACR guidelines: Elective dedicated thyroid ultrasound Signer Name: Joseph Sterling MD Signed: 06/19/2021 6:51 PM Workstation Name: [id number]
--- NOTE | 2021-06-19 19:01 | Cat Scan Report ---
CTA head with intravenous contrast CLINICAL HISTORY: tia TECHNIQUE: 0.625 mm thick contiguous axial scans were obtained from the skull base to the skull vertex during r apid bolus administration of intravenous contrast material. Multiplanar reconstructions were produced in the coronal and sagittal planes. In addition 3 plane MIP instructions were produced and reviewed for this report. The axial source images and reconstructed images were reviewed for this report. CONTRAST DOSE REPORT: Omnipaque 350: Under ml administered intravenously. All CT scans at this location are performed using CT dose reduction for ALARA by means of automated e xposure control. FINDINGS: Internal carotid arteries: Ossified atherosclerotic plaque is seen along the course the cavernous seg ments of both internal carotid arteries. There is no associated stenosis. Middle cerebral arteries:Normal and symmetrical M1 segments of the middle cerebral arteries are demon strated. No abnormalities are seen on evaluation of the insular or opercular branches. Anterior cerebral arteries:Bilaterally symmetrical A1 segments are demonstrated. No abnormalities are seen along the course of the A2 segments or their visualized pericallosal branches. Anterior cerebra l artery is not identified. Vertebral arteries: Vertebral arteries are diminutive in caliber Basilar artery: Basilar artery is small in size throughout large part due to the presence of or igin of both posterior cerebral arteries. Posterior cerebral arteries:Bilaterally symmetrical posterior cerebral arteries are identified. Feta l origin of the posterior cerebral arteries is noted. P1 segments are hypoplastic. [place] of [place]:Not intact. see above. Dural sinuses: Dural venous sinuses are well demonstrated on this exam. There is no evidence of dural sinus thrombosis. IMPRESSION: 1. No indication of hemodynamically significant stenosis or large vessel occlusion. Signer Name: Joseph Sterling MD Signed: 06/19/2021 6:56 PM Workstation Name: [id number]
[2021-06-19] MEDS ORDERED: INSULIN GLARGINE 100 UNITS/ML SUB-Q SCH (22:00)
[2021-06-20] MEDS: HEPARIN 5,000 UNIT/1 ML VIAL SUB-Q SCH ×3 (06:20→22:07)
[2021-06-20] MEDS: INSULIN LISPRO 100 UNIT/ML SUB-Q SCH ×5 (08:07→22:09)
[2021-06-20] MEDS: CHLORTHALIDONE 25 MG TAB PO SCH (10:01)
[2021-06-20] MEDS: CLOPIDOGREL 75 MG TAB PO SCH (10:01)
[2021-06-20] MEDS: NIFEdipine XL 30 MG TAB PO SCH (10:01)
[2021-06-20] MEDS: ASPIRIN 325 MG TAB PO SCH (10:01)
[2021-06-20] MEDS: LOSARTAN 25 MG TAB PO SCH (10:01)
[2021-06-20] MEDS: NICOTINE 14 MG/24 HR PATCH TD SCH (10:01)
--- NOTE | 2021-06-20 16:30 | Progress Note ---
Assessment and Plan Assessment and plan: Acute CVA work-up: 06/17: CT head without contrast no definite evidence of acute abnormality chronic appearing ischemic changes in the brainstem and cerebellum no evidence of hemorrhage 06/19: CTA head; no indication of hemodynamically significant stenosis or large vessel occlusion 06/19: CTA neck ; no indication of hemodynamically significant stenosis at the carotid bifurcation or elsewhere Incidental thyroid nodule in the thyroid isthmus measuring 2 cm patient greater than 35 years of age recommend elective dedicated thyroid ultrasound 06/19: MRI brain; There is 1.2 cm acute infarct involving superior left justin 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 --Heart failure with reduced and preserved ejection fraction -No prior history; new diagnosis -Echocardiogram showed LVEF 40-45%, with diastolic dysfunction -will start losartan as part of GDMT and BP control --Hypertension -uncontrolled -patient has not had medications in the last 3 years -continue chlorthalidone and nifidepine -goal SBP 170-200 ,48 hours hours per neurology per stroke protocol --Type 2 Diabetes, uncontrolled; Accu-Chek, sliding scale coverage, ADA diet Long-acting insulin, hemoglobin A1c --Heart failure with reduced and preserved ejection fraction -No prior history; new diagnosis -Echocardiogram showed LVEF 40-45%, with diastolic dysfunction -will start losartan as part of GDMT and BP control --Hypertension/uncontrolled Continue current antihypertensives and as needed medications -goal SBP between 170 -200 per stroke protocol --Type 2 Diabetes, uncontrolled; Accu-Chek, sliding scale coverage, ADA diet Long-acting insulin, add NovoLog before every meal 5 units A1c 14.6% --Medication non-compliance Hemoglobin A1C 14.6% Strongly advised to comply with medications, diet, follow-up visits Patient verbalized understanding --Positive syphilis antibody: Consult ID inpatient versus outpatient Supportive care --Tobacco dependence counseled on increased risk of stroke while smoking, benefits of cessation, patient voiced understanding. -Time +10 minutes nicotine patch while inpatient --DVT prophylaxis ; Subcu heparin [place] and recommendation noted and appreciated Closely monitor patient and adjust management as needed Possible discharge in 1 to 2 days if stable disposition : home with family once medically stable History Interval history: I seen and examined the patient at the bedside Patient's chart and medications reviewed Patient says she feels better and wants to go home Blood pressures are uncontrolled Acute CVA work-up is in progress Hospitalist Physical - Constitutional Vitals: Temp Pulse Resp BP Pulse Ox 98.9 F 75 20 187/96 95 06/20/21 07:35 06/20/21 11:44 06/20/21 11:44 06/20/21 11:44 06/20/21 11:44 General appearance: Present: no acute distress, well-nourished - EENT Eyes: Present: PERRL, EOM intact - Neck Neck: Present: supple, normal ROM - Respiratory Respiratory effort: normal Respiratory: bilateral: diminished, negative: rales, rhonchi, wheezing - Cardiovascular Rhythm: regular Heart Sounds: Present: S1 & S2 - Extremities Extremities: no ischemia, No edema - Abdominal General gastrointestinal: soft, non-tender, non-distended, normal bowel sounds - Integumentary Integumentary: Present: clear, warm - Psychiatric Psychiatric: appropriate mood/affect, cooperative - Neurologic Neurologic: moves all extremities, other (Minimal residual weakness) HEART Score - HEART Score Troponin: Troponin T 0.014 ng/mL (0.00-0.029) 06/17/21 19:58 Results - Labs CBC & Chem 7: 06/18/21 05:37 06/18/21 05:37 Labs: Laboratory Last Values WBC 6.2 K/mm3 (4.5-11.0) 06/18/21 05:37 RBC 4.42 M/mm3 (3.65-5.03) 06/18/21 05:37 Hgb 13.6 gm/dl (10.1-14.3) 06/18/21 05:37 Hct 40.5 % (30.3-42.9) 06/18/21 05:37 MCV 92 fl (79-97) 06/18/21 05:37 MCH 31 pg (28-32) 06/18/21 05:37 MCHC 34 % (30-34) 06/18/21 05:37 RDW 12.4 % (13.2-15.2) L 06/18/21 05:37 Plt Count 148 K/mm3 (140-440) 06/18/21 05:37 Lymph % (Auto) 38.3 % (13.4-35.0) H 06/18/21 05:37 [place] % (Auto) 6.9 % (0.0-7.3) 06/18/21 05:37 Eos % (Auto) 2.2 % (0.0-4.3) 06/18/21 05:37 Baso % (Auto) 0.6 % (0.0-1.8) 06/18/21 05:37 Lymph # (Auto) 2.4 K/mm3 (1.2-5.4) 06/18/21 05:37 [place] # (Auto) 0.4 K/mm3 (0.0-0.8) 06/18/21 05:37 Eos # (Auto) 0.1 K/mm3 (0.0-0.4) 06/18/21 05:37 Baso # (Auto) 0.0 K/mm3 (0.0-0.1) 06/18/21 05:37 Seg Neutrophils % 52.0 % (40.0-70.0) 06/18/21 05:37 Seg Neutrophils # 3.2 K/mm3 (1.8-7.7) 06/18/21 05:37 PT 12.2 Sec. (12.2-14.9) 06/17/21 19:58 INR 0.81 (0.87-1.13) L 06/17/21 19:58 APTT 26.1 Sec. (24.2-36.6) 06/17/21 19:58 Thrombin Time 17.6 Sec. (15.1-19.6) 06/17/21 19:58 VBG pH 7.368 (7.320-7.420) 06/17/21 19:58 Sodium 139 mmol/L (137-145) 06/18/21 05:37 Potassium 3.7 mmol/L (3.6-5.0) 06/18/21 05:37 Chloride 102.5 mmol/L (98-107) 06/18/21 05:37 Carbon Dioxide 25 mmol/L (22-30) 06/18/21 05:37 Anion Gap 15 mmol/L 06/18/21 05:37 BUN 17 mg/dL (7-17) 06/18/21 05:37 Creatinine 1.2 mg/dL (0.6-1.2) 06/18/21 05:37 Estimated GFR 55 ml/min 06/18/21 05:37 BUN/Creatinine Ratio 14 % 06/18/21 05:37 Glucose 211 mg/dL (65-100) H 06/18/21 05:37 POC Glucose 322 mg/dL (70-105) H 06/20/21 15:44 Hemoglobin A1c 14.6 % (4-6) H 06/18/21 05:37 Calcium 9.3 mg/dL (8.4-10.2) 06/18/21 05:37 Magnesium 1.90 mg/dL (1.7-2.3) 06/17/21 19:58 Total Bilirubin 0.20 mg/dL (0.1-1.2) 06/17/21 19:58 AST 18 units/L (5-40) 06/17/21 19:58 ALT 27 units/L (7-56) 06/17/21 19:58 Alkaline Phosphatase 119 units/L (35-129) 06/17/21 19:58 Total Creatine Kinase 82 units/L (30-135) 06/17/21 19:58 Total Creatine Kinase 82 units/L (30-135) 06/17/21 19:58 CK-MB (CK-2) 1.9 ng/mL (0.0-4.0) 06/17/21 19:58 CK-MB (CK-2) Rel Index 2.3 (0-4) 06/17/21 19:58 Troponin T 0.014 ng/mL (0.00-0.029) 06/17/21 19:58 Total Protein 6.2 g/dL (6.3-8.2) L 06/17/21 19:58 Albumin 3.3 g/dL (3.9-5) L 06/17/21 19:58 Albumin/Globulin Ratio 1.1 % 06/17/21 19:58 Triglycerides 209 mg/dL (2-149) H 06/19/21 11:36 Cholesterol 210 mg/dL (50-199) H 06/19/21 11:36 LDL Cholesterol Direct 151 mg/dL (50-130) H 06/19/21 11:36 HDL Cholesterol 36 mg/dL (40-59) L 06/19/21 11:36 Cholesterol/HDL Ratio 5.83 % 06/19/21 11:36 Vitamin B12 553.6 pg/mL (211-911) 06/19/21 11:36 TSH 0.543 mlU/mL (0.270-4.200) 06/19/21 11:36 Urine Color Straw (Yellow) 06/17/21 22:49 Urine Turbidity Clear (Clear) 06/17/21 22:49 Urine pH 6.0 (5.0-7.0) 06/17/21 22:49 Ur Specific [place] 1.017 (1.003-1.030) 06/17/21 22:49 Urine Protein 30 mg/dl mg/dL (Negative) 06/17/21 22:49 Urine Glucose (UA) >=500 mg/dL (Negative) 06/17/21 22:49 Urine Ketones Neg mg/dL (Negative) 06/17/21 22:49 Urine Blood Neg (Negative) 06/17/21 22:49 Urine Nitrite Neg (Negative) 06/17/21 22:49 Urine Bilirubin Neg (Negative) 06/17/21 22:49 Urine Urobilinogen < 2.0 mg/dL (<2.0) 06/17/21 22:49 Ur Leukocyte Esterase Neg (Negative) 06/17/21 22:49 Urine WBC (Auto) 1.0 /HPF (0.0-6.0) 06/17/21 22:49 Urine RBC (Auto) < 1.0 /HPF (0.0-6.0) 06/17/21 22:49 U Epithel Cells (Auto) 4.0 /HPF (0-13.0) 06/17/21 22:49 Urine Bacteria (Auto) 1+ /HPF (Negative) 06/17/21 22:49 Plasma/Serum Alcohol < 0.01 % (0-0.07) 06/17/21 19:58 Syphilis IgG Antibody Reactive (NonReactive) A 06/19/21 11:36 RPR Titer 1:2 06/19/21 11:36 [place]/IV: Voiding Method Toilet Active Medications - Current Medications Current Medications: Generic Name Dose Route Start Last Admin Trade Name Freq PRN Reason Stop Dose Admin Acetaminophen 650 mg 06/17/21 21:46 Acetaminophen 325 Mg Tab PO Q4H PRN Pain MILD(1-3)/Fever >100.5/DEL TORO Aspirin 325 mg 06/18/21 10:00 06/20/21 10:01 Aspirin 325 Mg Tab PO 325 mg QDAY KAITLIN Administration Atorvastatin Calcium 40 mg 06/17/21 22:00 06/19/21 21:54 Atorvastatin 40 Mg Tab PO 40 mg QHS KAITLIN Administration Chlorthalidone 25 mg 06/18/21 14:00 06/20/21 10:01 Chlorthalidone 25 Mg Tab PO 25 mg QDAY KAITLIN Administration Clopidogrel Bisulfate 75 mg 06/19/21 14:00 06/20/21 10:01 Clopidogrel 75 Mg Tab PO 07/09/21 10:01 75 mg QDAY KAITLIN Administration Dextrose 0 ml 06/17/21 21:46 Dextrose 50% In Water (25gm) 50 Ml Syringe IV Q30MIN PRN Hypoglycemia Protocol Heparin Sodium (Porcine) 5,000 unit 06/17/21 22:00 06/20/21 14:07 Heparin 5,000 Unit/1 Ml Vial SUB-Q Not Given Q8HR [facility] Insulin Glargine 15 units 06/20/21 16:24 Insulin Glargine 100 Units/Ml SUB-Q QHS [facility] Insulin Human Lispro 0 unit 06/17/21 22:00 06/20/21 13:08 Insulin Lispro 100 Unit/Ml SUB-Q Not Given ACHS [facility] Protocol Insulin Human Lispro 5 unit 06/20/21 16:30 Insulin Lispro 100 Unit/Ml SUB-Q AC [facility] Losartan Potassium 12.5 mg 06/19/21 16:00 06/20/21 10:01 Losartan 25 Mg Tab PO 12.5 mg QDAY [facility] Administration Magnesium Hydroxide 30 ml 06/17/21 21:46 Magnesium Hydroxide (Mom) Oral Liqd Udc PO Q4H PRN Constipation Morphine Sulfate 2 mg 06/17/21 21:46 Morphine 2 Mg/1 Ml Inj IV Q4H PRN Pain, Moderate (4-6) Morphine Sulfate 4 mg 06/17/21 21:46 Morphine 4 Mg/1 Ml Inj IV Q4H PRN Pain , Severe (7-10) Nicotine 14 mg 06/18/21 15:00 06/20/21 10:01 Nicotine 14 Mg/24 Hr Patch TD Not Given QDAY KAITLIN Nifedipine 30 mg 06/19/21 10:00 06/20/21 10:01 Nifedipine Xl 30 Mg Tab PO 30 mg QDAY KAITLIN Administration Ondansetron HCl 4 mg 06/17/21 21:46 Ondansetron 4 Mg/2 Ml Inj IV Q8H PRN Nausea And Vomiting Sodium Chloride 10 ml 06/17/21 22:00 06/20/21 10:02 Sodium Chloride 0.9% 10 Ml Flush Syringe IV 10 ml BID KAITLIN Administration Sodium Chloride 10 ml 06/17/21 21:46 Sodium Chloride 0.9% 10 Ml Flush Syringe IV PRN PRN LINE FLUSH Nutrition/Malnutrition Assess - Dietary Evaluation Nutrition/Malnutrition Findings: Nutrition Notes Start: 06/19/21 14:46 Freq: Status: Active Protocol: Document 06/19/21 14:46 KENN (Rec: 06/19/21 14:50 KENN [id number]) Nutrition Notes Need for Assessment generated from: MD Order,Education Initial or Follow up Brief Note Current Diagnosis Diabetes,Hypertension Other Pertinent Diagnosis TIA, Tobacco dependency Current Diet Cardiac/Consistent CHO Labs/Tests A1C 14.6 Subjective/Other Information RD consulted for diet education. Pt says she moved from [facility] to [facility] 3 yrs ago and had no available resources; she received all of her care from [place] and says she had no where to go when she moved to [facility]. She has not had any medications for the past 3 yrs; she used to take Lantus and metformin and had controlled BS to the point that she only needed the metformin. She was diagnosed with DM 10 yrs ago and is familiar with food sources of CHO. She says her also had a stroke and she takes care of him. She denies the need for diet education at this time, but is happy that she has resources for medication now. Burn Absent Trauma Absent Minimum of two criteria No Nutrition Intervention Revisit per MD consult or patient Sign Off request:
[2021-06-20] MEDS: INSULIN GLARGINE 100 UNITS/ML SUB-Q SCH (22:08)
[2021-06-21] MEDS: HEPARIN 5,000 UNIT/1 ML VIAL SUB-Q SCH ×2 (06:19→14:28)
--- NOTE | 2021-06-21 08:20 | Progress Note ---
Assessment and Plan Assessment and plan: Acute CVA work-up: 06/17: CT head without contrast no definite evidence of acute abnormality chronic appearing ischemic changes in the brainstem and cerebellum no evidence of hemorrhage 06/19: CTA head; no indication of hemodynamically significant stenosis or large vessel occlusion 06/19: CTA neck ; no indication of hemodynamically significant stenosis at the carotid bifurcation or elsewhere Incidental thyroid nodule in the thyroid isthmus measuring 2 cm patient greater than 35 years of age recommend elective dedicated thyroid ultrasound 06/19: MRI brain; There is 1.2 cm acute infarct involving superior left justin Extensive chronic 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 involving the infer ior right cerebellum CVA work-up so far 06/17: echocardiogram; EF 40 to 45%, No LV thrombus, No PFO or shunt 06/17: carotid Doppler; less than 50% stenosis bilaterally carotid arteries --Positive syphilis antibody: ID evaluation noted and appreciated Recommend lumbar puncture, CSF analysis Supportive care Plavix held in preparation for fluoroscopic LP --Acute CVA: Not a candidate for TPA Continue aspirin and statin Plavix Toprol 21 doses, end date 07/09/2021[rec by neurology] Hold Plavix tonight for possible lumbar puncture tomorrow Neuro work-up reviewed, reports as mentioned above Physical therapy; no discharge needs ambulatory without support Follow Occupational Therapy. --Heart failure with reduced and preserved ejection fraction -No prior history; new diagnosis -Echocardiogram showed LVEF 40-45%, with diastolic dysfunction -will start losartan as part of GDMT and BP control --Hypertension urgency Patient's blood pressures maintained per stroke protocol SBP between 170 -200 > 5 days of acute CVA Resume home antihypertensives As needed hydralazine Monitor closely for optimal blood pressure control --Type 2 Diabetes, uncontrolled; Accu-Chek, sliding scale coverage, ADA diet Long-acting insulin, hemoglobin A1c --Heart failure with reduced and preserved ejection fraction -No prior history; new diagnosis -Echocardiogram showed LVEF 40-45%, with diastolic dysfunction -will start losartan as part of GDMT and BP control --Hypertension/uncontrolled Continue current antihypertensives and as needed medications --Type 2 Diabetes, uncontrolled; Accu-Chek, sliding scale coverage, ADA diet Long-acting insulin, add NovoLog before every meal 5 units A1c 14.6% --Medication non-compliance Hemoglobin A1C 14.6% Strongly advised to comply with medications, diet, follow-up visits Patient verbalized understanding --Tobacco dependence counseled on increased risk of stroke while smoking, benefits of cessation, patient voiced understanding. -Time +10 minutes nicotine patch while inpatient --DVT prophylaxis ; Subcu heparin Information Security and recommendation noted and appreciated Closely monitor patient and adjust management as needed Possible discharge in 1 to 2 days if stable disposition : Follow-up ID evaluation and recommendations, follow occupational therapy evaluation recommendation home with family once medically stable Plan of care discussed with the patient, explained ID recommendations and lumbar puncture extensively Closely monitor the patient and adjust the management as needed History Interval history: Patient feels better no new complaints Patient is very concerned about her positive syphilis test And pending lumbar puncture tomorrow No new complaints Hospitalist Physical - Constitutional Vitals: Temp Pulse Resp BP Pulse Ox 98.2 F 69 17 180/88 99 06/21/21 03:53 06/21/21 03:53 06/21/21 03:53 06/21/21 03:53 06/21/21 03:53 General appearance: Present: no acute distress, well-nourished - EENT Eyes: Present: PERRL, EOM intact - Neck Neck: Present: supple, normal ROM - Respiratory Respiratory effort: normal Respiratory: bilateral: diminished, negative: rales, rhonchi, wheezing - Cardiovascular Rhythm: regular Heart Sounds: Present: S1 & S2 - Extremities Extremities: no ischemia, No edema - Abdominal General gastrointestinal: soft, non-tender, non-distended, normal bowel sounds - Integumentary Integumentary: Present: clear, warm - Psychiatric Psychiatric: appropriate mood/affect, cooperative - Neurologic Neurologic: moves all extremities HEART Score - HEART Score Troponin: Troponin T 0.014 ng/mL (0.00-0.029) 06/17/21 19:58 Results - Labs CBC & Chem 7: 06/18/21 05:37 06/18/21 05:37 Labs: Laboratory Last Values WBC 6.2 K/mm3 (4.5-11.0) 06/18/21 05:37 RBC 4.42 M/mm3 (3.65-5.03) 06/18/21 05:37 Hgb 13.6 gm/dl (10.1-14.3) 06/18/21 05:37 Hct 40.5 % (30.3-42.9) 06/18/21 05:37 MCV 92 fl (79-97) 06/18/21 05:37 MCH 31 pg (28-32) 06/18/21 05:37 MCHC 34 % (30-34) 06/18/21 05:37 RDW 12.4 % (13.2-15.2) L 06/18/21 05:37 Plt Count 148 K/mm3 (140-440) 06/18/21 05:37 Lymph % (Auto) 38.3 % (13.4-35.0) H 06/18/21 05:37 [place] % (Auto) 6.9 % (0.0-7.3) 06/18/21 05:37 Eos % (Auto) 2.2 % (0.0-4.3) 06/18/21 05:37 Baso % (Auto) 0.6 % (0.0-1.8) 06/18/21 05:37 Lymph # (Auto) 2.4 K/mm3 (1.2-5.4) 06/18/21 05:37 [place] # (Auto) 0.4 K/mm3 (0.0-0.8) 06/18/21 05:37 Eos # (Auto) 0.1 K/mm3 (0.0-0.4) 06/18/21 05:37 Baso # (Auto) 0.0 K/mm3 (0.0-0.1) 06/18/21 05:37 Seg Neutrophils % 52.0 % (40.0-70.0) 06/18/21 05:37 Seg Neutrophils # 3.2 K/mm3 (1.8-7.7) 06/18/21 05:37 PT 12.2 Sec. (12.2-14.9) 06/17/21 19:58 INR 0.81 (0.87-1.13) L 06/17/21 19:58 APTT 26.1 Sec. (24.2-36.6) 06/17/21 19:58 Thrombin Time 17.6 Sec. (15.1-19.6) 06/17/21 19:58 VBG pH 7.368 (7.320-7.420) 06/17/21 19:58 Sodium 139 mmol/L (137-145) 06/18/21 05:37 Potassium 3.7 mmol/L (3.6-5.0) 06/18/21 05:37 Chloride 102.5 mmol/L (98-107) 06/18/21 05:37 Carbon Dioxide 25 mmol/L (22-30) 06/18/21 05:37 Anion Gap 15 mmol/L 06/18/21 05:37 BUN 17 mg/dL (7-17) 06/18/21 05:37 Creatinine 1.2 mg/dL (0.6-1.2) 06/18/21 05:37 Estimated GFR 55 ml/min 06/18/21 05:37 BUN/Creatinine Ratio 14 % 06/18/21 05:37 Glucose 211 mg/dL (65-100) H 06/18/21 05:37 POC Glucose 190 mg/dL (70-105) H 06/21/21 07:34 Hemoglobin A1c 14.6 % (4-6) H 06/18/21 05:37 Calcium 9.3 mg/dL (8.4-10.2) 06/18/21 05:37 Magnesium 1.90 mg/dL (1.7-2.3) 06/17/21 19:58 Total Bilirubin 0.20 mg/dL (0.1-1.2) 06/17/21 19:58 AST 18 units/L (5-40) 06/17/21 19:58 ALT 27 units/L (7-56) 06/17/21 19:58 Alkaline Phosphatase 119 units/L (35-129) 06/17/21 19:58 Total Creatine Kinase 82 units/L (30-135) 06/17/21 19:58 Total Creatine Kinase 82 units/L (30-135) 06/17/21 19:58 CK-MB (CK-2) 1.9 ng/mL (0.0-4.0) 06/17/21 19:58 CK-MB (CK-2) Rel Index 2.3 (0-4) 06/17/21 19:58 Troponin T 0.014 ng/mL (0.00-0.029) 06/17/21 19:58 Total Protein 6.2 g/dL (6.3-8.2) L 06/17/21 19:58 Albumin 3.3 g/dL (3.9-5) L 06/17/21 19:58 Albumin/Globulin Ratio 1.1 % 06/17/21 19:58 Triglycerides 209 mg/dL (2-149) H 06/19/21 11:36 Cholesterol 210 mg/dL (50-199) H 06/19/21 11:36 LDL Cholesterol Direct 151 mg/dL (50-130) H 06/19/21 11:36 HDL Cholesterol 36 mg/dL (40-59) L 06/19/21 11:36 Cholesterol/HDL Ratio 5.83 % 06/19/21 11:36 Vitamin B12 553.6 pg/mL (211-911) 06/19/21 11:36 TSH 0.543 mlU/mL (0.270-4.200) 06/19/21 11:36 Urine Color Straw (Yellow) 06/17/21 22:49 Urine Turbidity Clear (Clear) 06/17/21 22:49 Urine pH 6.0 (5.0-7.0) 06/17/21 22:49 Ur Specific [place] 1.017 (1.003-1.030) 06/17/21 22:49 Urine Protein 30 mg/dl mg/dL (Negative) 06/17/21 22:49 Urine Glucose (UA) >=500 mg/dL (Negative) 06/17/21 22:49 Urine Ketones Neg mg/dL (Negative) 06/17/21 22:49 Urine Blood Neg (Negative) 06/17/21 22:49 Urine Nitrite Neg (Negative) 06/17/21 22:49 Urine Bilirubin Neg (Negative) 06/17/21 22:49 Urine Urobilinogen < 2.0 mg/dL (<2.0) 06/17/21 22:49 Ur Leukocyte Esterase Neg (Negative) 06/17/21 22:49 Urine WBC (Auto) 1.0 /HPF (0.0-6.0) 06/17/21 22:49 Urine RBC (Auto) < 1.0 /HPF (0.0-6.0) 06/17/21 22:49 U Epithel Cells (Auto) 4.0 /HPF (0-13.0) 06/17/21 22:49 Urine Bacteria (Auto) 1+ /HPF (Negative) 06/17/21 22:49 Plasma/Serum Alcohol < 0.01 % (0-0.07) 06/17/21 19:58 Syphilis IgG Antibody Reactive (NonReactive) A 06/19/21 11:36 RPR Titer 1:2 06/19/21 11:36 [place]/IV: Voiding Method Toilet Active Medications - Current Medications Current Medications: Generic Name Dose Route Start Last Admin Trade Name Freq PRN Reason Stop Dose Admin Acetaminophen 650 mg 06/17/21 21:46 Acetaminophen 325 Mg Tab PO Q4H PRN Pain MILD(1-3)/Fever >100.5/DEL TORO Aspirin 325 mg 06/18/21 10:00 06/20/21 10:01 Aspirin 325 Mg Tab PO 325 mg QDAY KAITLIN Administration Atorvastatin Calcium 40 mg 06/17/21 22:00 06/20/21 22:09 Atorvastatin 40 Mg Tab PO 40 mg QHS KAITLIN Administration Chlorthalidone 25 mg 06/18/21 14:00 06/20/21 10:01 Chlorthalidone 25 Mg Tab PO 25 mg QDAY KAITLIN Administration Clopidogrel Bisulfate 75 mg 06/19/21 14:00 06/20/21 10:01 Clopidogrel 75 Mg Tab PO 07/09/21 10:01 75 mg QDAY KAITLIN Administration Dextrose 0 ml 06/17/21 21:46 Dextrose 50% In Water (25gm) 50 Ml Syringe IV Q30MIN PRN Hypoglycemia Protocol Heparin Sodium (Porcine) 5,000 unit 06/17/21 22:00 06/21/21 06:19 Heparin 5,000 Unit/1 Ml Vial SUB-Q 5,000 unit Q8HR KAITLIN Administration Insulin Glargine 15 units 06/20/21 22:00 06/20/21 22:08 Insulin Glargine 100 Units/Ml SUB-Q 15 units QHS KAITLIN Administration Insulin Human Lispro 0 unit 06/17/21 22:00 06/20/21 22:09 Insulin Lispro 100 Unit/Ml SUB-Q 4 unit ACHS KAITLIN Administration Protocol Insulin Human Lispro 5 unit 06/20/21 16:30 06/20/21 17:03 Insulin Lispro 100 Unit/Ml SUB-Q 5 unit AC KAITLIN Administration Losartan Potassium 12.5 mg 06/19/21 16:00 06/20/21 10:01 Losartan 25 Mg Tab PO 12.5 mg QDAY KAITLIN Administration Magnesium Hydroxide 30 ml 06/17/21 21:46 Magnesium Hydroxide (Mom) Oral Liqd Udc PO Q4H PRN Constipation Morphine Sulfate 2 mg 06/17/21 21:46 Morphine 2 Mg/1 Ml Inj IV Q4H PRN Pain, Moderate (4-6) Morphine Sulfate 4 mg 06/17/21 21:46 Morphine 4 Mg/1 Ml Inj IV Q4H PRN Pain , Severe (7-10) Nicotine 14 mg 06/18/21 15:00 06/20/21 10:01 Nicotine 14 Mg/24 Hr Patch TD Not Given QDAY KAITLIN Nifedipine 30 mg 06/19/21 10:00 06/20/21 10:01 Nifedipine Xl 30 Mg Tab PO 30 mg QDAY KAITLIN Administration Ondansetron HCl 4 mg 06/17/21 21:46 Ondansetron 4 Mg/2 Ml Inj IV Q8H PRN Nausea And Vomiting Sodium Chloride 10 ml 06/17/21 22:00 06/20/21 22:09 Sodium Chloride 0.9% 10 Ml Flush Syringe IV 10 ml BID KAITLIN Administration Sodium Chloride 10 ml 06/17/21 21:46 Sodium Chloride 0.9% 10 Ml Flush Syringe IV PRN PRN LINE FLUSH Nutrition/Malnutrition Assess - Dietary Evaluation Nutrition/Malnutrition Findings: Nutrition Notes Start: 06/19/21 14:46 Freq: Status: Active Protocol: Document 06/19/21 14:46 KENN (Rec: 06/19/21 14:50 KENN [id number]) Nutrition Notes Need for Assessment generated from: MD Order,Education Initial or Follow up Brief Note Current Diagnosis Diabetes,Hypertension Other Pertinent Diagnosis TIA, Tobacco dependency Current Diet Cardiac/Consistent CHO Labs/Tests A1C 14.6 Subjective/Other Information RD consulted for diet education. Pt says she moved from [facility] to [facility] 3 yrs ago and had no available resources; she received all of her care from [place] and says she had no where to go when she moved to [facility]. She has not had any medications for the past 3 yrs; she used to take Lantus and metformin and had controlled BS to the point that she only needed the metformin. She was diagnosed with DM 10 yrs ago and is familiar with food sources of CHO. She says her also had a stroke and she takes care of him. She denies the need for diet education at this time, but is happy that she has resources for medication now. Burn Absent Trauma Absent Minimum of two criteria No Nutrition Intervention Revisit per MD consult or patient Sign Off request:
[2021-06-21] MEDS: INSULIN LISPRO 100 UNIT/ML SUB-Q SCH ×6 (08:29→18:29)
[2021-06-21] MEDS ORDERED: hydrALAZINE 20 MG/1 ML INJ IV NR (09:00)
[2021-06-21] MEDS ORDERED: hydrALAZINE 20 MG/1 ML INJ IV PRN (10:00)
[2021-06-21] MEDS ORDERED: CHLORTHALIDONE 25 MG TAB PO SCH (10:00)
[2021-06-21] MEDS: atenoloL 25 MG TAB PO SCH (10:28)
[2021-06-21] MEDS: CHLORTHALIDONE 25 MG TAB PO SCH (10:28)
[2021-06-21] MEDS: ASPIRIN 325 MG TAB PO SCH (10:28)
[2021-06-21] MEDS: NIFEdipine XL 30 MG TAB PO SCH (10:29)
[2021-06-21] MEDS: LOSARTAN 25 MG TAB PO SCH (10:29)
[2021-06-21] MEDS: CLOPIDOGREL 75 MG TAB PO SCH (10:29)
[2021-06-21] MEDS: LISINOPRIL 40 MG TAB PO SCH (10:29)
[2021-06-21] MEDS: NICOTINE 14 MG/24 HR PATCH TD SCH (10:31)
--- NOTE | 2021-06-21 11:11 | Consultation ---
History of Present Illness - Reason for Consult Consult date: 06/21/21 - History of Present Illness 60-year-old female past medical history hypertension, diabetes, noncompliance with medications presented to the hospital complaining of slurred speech leg weakness. She currently is improved from admission. She was screened for syphilis, and her antibody was positive with RPR 1:2. She denies having been treated in the past Afebrile since admission with a white count 6.2. Imaging personally reviewed: Brain MRI: Acute infarct in the superior left justin Review of Systems: Bold if positive, otherwise negative General: fevers, chills, rigors HEENT: visual disturbance, diplopia, eye pain Respiratory: cough, sputum, hemoptysis, shortness of breath Cardiovascular: chest pain, syncope Gastrointestinal: nausea, vomiting, diarrhea, abdominal pain Genitourinary: dysuria, hematuria, flank pain Musculoskeletal: neck pain, back pain, joint pain, edema Neurologic: headaches, seizures Hematologic: easy bruising or bleeding Endocrine: night sweats, acute weight loss Skin: rash, jaundice, redness Psychiatric: suicidal, homicidal ideation Past History Past Medical History: diabetes, hypertension Past Surgical History: No surgical history Social history: smoking (Current daily smoker) Family history: no significant family history Medications and Allergies Allergies Allergy/AdvReac Type Severity Reaction Status Date / Time No Known Allergies Allergy Verified 06/19/21 14:47 Home Medications Medication Instructions Recorded Confirmed Last Taken Type Aspirin [Adult Aspirin] 81 mg PO DAILY 03/11/20 06/19/21 06/15/21 History Cholecalciferol Vit D3 [Vitamin D3 1,000 unit PO QDAY 03/11/20 06/19/21 06/15/21 History 1,000 UNIT TAB] Esomeprazole Magnesium [Nexium 20 mg PO DAILY 03/11/20 06/19/21 06/15/21 History 24Hr] amLODIPine [Norvasc] 10 mg PO DAILY 03/11/20 06/19/21 06/15/21 History Chlorthalidone [Thalitone] 25 mg PO QDAY #30 tablet 02/22/21 06/19/21 06/15/21 Rx Metformin HCl [metFORMIN] 1,000 mg PO BID #60 tab 02/22/21 06/19/21 06/15/21 Rx atenoloL [Tenormin] 25 mg PO DAILY #30 tab 02/22/21 06/19/21 06/15/21 Rx lisinopriL [Zestril TAB] 40 mg PO QDAY #30 tablet 02/22/21 06/19/21 06/15/21 Rx Active Meds: Active Medications Acetaminophen (Acetaminophen 325 Mg Tab) 650 mg PO Q4H PRN PRN Reason: Pain MILD(1-3)/Fever >100.5/DEL TORO Aspirin (Aspirin 325 Mg Tab) 325 mg PO QDAY [facility] Last Admin: 06/21/21 10:28 Dose: 325 mg Documented by: Atenolol (Atenolol 25 Mg Tab) 25 mg PO DAILY [facility] Last Admin: 06/21/21 10:28 Dose: 25 mg Documented by: Atorvastatin Calcium (Atorvastatin 40 Mg Tab) 40 mg PO QHS [facility] Last Admin: 06/20/21 22:09 Dose: 40 mg Documented by: Chlorthalidone (Chlorthalidone 25 Mg Tab) 25 mg PO QDAY [facility] Last Admin: 06/21/21 10:28 Dose: 25 mg Documented by: Clopidogrel Bisulfate (Clopidogrel 75 Mg Tab) 75 mg PO QDAY [facility] Stop: 07/09/21 10:01 Last Admin: 06/21/21 10:29 Dose: 75 mg Documented by: Dextrose (Dextrose 50% In Water (25gm) 50 Ml Syringe) 0 ml IV Q30MIN PRN; Protocol PRN Reason: Hypoglycemia Heparin Sodium (Porcine) (Heparin 5,000 Unit/1 Ml Vial) 5,000 unit SUB-Q Q8HR [facility] Last Admin: 06/21/21 06:19 Dose: 5,000 unit Documented by: Hydralazine HCl (Hydralazine 20 Mg/1 Ml Inj) 10 mg IV Q4HR PRN PRN Reason: Hypertension Insulin Glargine (Insulin Glargine 100 Units/Ml) 15 units SUB-Q QHS [facility] Last Admin: 06/20/21 22:08 Dose: 15 units Documented by: Insulin Human Lispro (Insulin Lispro 100 Unit/Ml) 0 unit SUB-Q [facility]; Protocol Last Admin: 06/21/21 08:29 Dose: 2 unit Documented by: Insulin Human Lispro (Insulin Lispro 100 Unit/Ml) 5 unit SUB-Q [facility] Last Admin: 06/21/21 08:30 Dose: 5 unit Documented by: Lisinopril (Lisinopril 40 Mg Tab) 40 mg PO QDAY [facility] Last Admin: 06/21/21 10:29 Dose: 40 mg Documented by: Losartan Potassium (Losartan 25 Mg Tab) 12.5 mg PO QDAY [facility] Last Admin: 06/21/21 10:29 Dose: 12.5 mg Documented by: Magnesium Hydroxide (Magnesium Hydroxide (Mom) Oral Liqd Udc) 30 ml PO Q4H PRN PRN Reason: Constipation Morphine Sulfate (Morphine 2 Mg/1 Ml Inj) 2 mg IV Q4H PRN PRN Reason: Pain, Moderate (4-6) Morphine Sulfate (Morphine 4 Mg/1 Ml Inj) 4 mg IV Q4H PRN PRN Reason: Pain , Severe (7-10) Nicotine (Nicotine 14 Mg/24 Hr Patch) 14 mg TD QDAY [facility] Last Admin: 06/20/21 10:01 Dose: Not Given Documented by: Nifedipine (Nifedipine Xl 30 Mg Tab) 30 mg PO QDAY [facility] Last Admin: 06/21/21 10:29 Dose: 30 mg Documented by: Ondansetron HCl (Ondansetron 4 Mg/2 Ml Inj) 4 mg IV Q8H PRN PRN Reason: Nausea And Vomiting Sodium Chloride (Sodium Chloride 0.9% 10 Ml Flush Syringe) 10 ml IV BID [facility] Last Admin: 06/21/21 10:29 Dose: 10 ml Documented by: Sodium Chloride (Sodium Chloride 0.9% 10 Ml Flush Syringe) 10 ml IV PRN PRN PRN Reason: LINE FLUSH Physical Examination - Physical Exam Narrative exam: Physical Exam: Constitutional: Alert, cooperative. No acute distress Head, Ears, Nose: Normocephalic, atraumatic. External ears, nose normal Eyes: Conjunctivae/corneas clear. No icterus. No ptosis. Neck: Supple, no meningeal signs Oral: dentition fair, no thrush Cardiovascular: S1, S2 normal. Respiratory: Good air entry, clear to auscultation bilaterally GI: Soft, non-tender; bowel sounds normal. No peritoneal signs. Musculoskeletal: No pedal edema, no cyanosis. Skin: No rash or abscess Hem/Lymphatic: No palpable cervical or supraclavicular nodes. No lymphangitis Psych: Mood ok. Affect normal Neurological: Awake, alert, oriented. No gross abnormality - Constitutional Vitals: Vital Signs Temp Pulse Resp BP Pulse Ox 98.2 F 69 17 180/88 100 06/21/21 03:53 06/21/21 08:57 06/21/21 03:53 06/21/21 03:53 06/21/21 08:57 Temperature -Last 24 Hours Temperature 98.2 F Temperature 98.3 F Temperature 98.8 F Temperature 98.5 F Results - Labs CBC & Chem 7: 06/18/21 05:37 06/18/21 05:37 Labs: Abnormal lab results 06/20/21 06/20/21 06/21/21 Range/Units 15:44 20:10 07:34 POC Glucose 322 H 263 H 190 H (70-105) mg/dL Assessment and Plan Cultures: None RPR 1:2 A/P: 60-year-old female past medical history hypertension, diabetes, noncompliance with medications now with: #Late latent syphilis: With low RPR. Mild neurologic complaints most likely explained by acute infarction, would recommend CSF examination for VDRL to exclude neurosyphilis. #Acute CVA: Improving. As seen on MRI #Diabetes: tight glycemic control for best outcomes. Recs: -Ordered LP with fluid analysis and CSF VDRL -Syphilis treatment pending results, IM versus IV penicillin Thank you for the consult, we will continue to follow. Zcahary Mane MD [facility] O: [phone] F: [phone]
[2021-06-21] MEDS: INSULIN GLARGINE 100 UNITS/ML SUB-Q SCH (21:39)
--- NOTE | 2021-06-22 05:36 | Progress Note ---
Assessment and Plan Assessment and plan: --Positive syphilis antibody: ID evaluation noted and appreciated Recommend lumbar puncture, CSF analysis Plavix,, aspirin, heparin held in preparation for fluoroscopic LP --Acute CVA: Aspirin, Plavix and heparin held for LP procedure today Not a candidate for TPA Continue aspirin and statin Plavix Toprol 21 doses, end date 07/09/2021[rec by neurology] Hold Plavix tonight for possible lumbar puncture tomorrow Neuro work-up reviewed, reports as mentioned above Physical therapy; no discharge needs ambulatory without support Follow Occupational Therapy. Acute CVA work-up: 06/17: CT head without contrast no definite evidence of acute abnormality chronic appearing ischemic changes in the brainstem and cerebellum no evidence of hemorrhage 06/19: CTA head; no indication of hemodynamically significant stenosis or large vessel occlusion 06/19: CTA neck ; no indication of hemodynamically significant stenosis at the carotid bifurcation or elsewhere Incidental thyroid nodule in the thyroid isthmus measuring 2 cm patient greater than 35 years of age recommend elective dedicated thyroid ultrasound 06/19: MRI brain; There is 1.2 cm acute infarct involving superior left justin Extensive chronic 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 involving the inferior right cerebellum CVA work-up so far 06/17: echocardiogram; EF 40 to 45%, No LV thrombus, No PFO or shunt 06/17: carotid Doppler; less than 50% stenosis bilaterally carotid arteries --Heart failure with preserved ejection fraction -No prior history; new diagnosis -Echocardiogram showed LVEF 40-45%, with diastolic dysfunction -will start losartan as part of GDMT and BP control --Hypertension urgency Patient's blood pressures maintained per stroke protocol SBP between 170 -200 > 5 days of acute CVA Resume home antihypertensives As needed hydralazine Monitor closely for optimal blood pressure control --Type 2 Diabetes, uncontrolled; Accu-Chek, sliding scale coverage, ADA diet Long-acting insulin, hemoglobin A1c --Heart failure with reduced and preserved ejection fraction -No prior history; new diagnosis -Echocardiogram showed LVEF 40-45%, with diastolic dysfunction -will start losartan as part of GDMT and BP control --Hypertension/uncontrolled Continue current antihypertensives and as needed medications --Type 2 Diabetes, uncontrolled; Accu-Chek, sliding scale coverage, ADA diet Long-acting insulin, add NovoLog before every meal 5 units A1c 14.6% --Medication non-compliance Hemoglobin A1C 14.6% Strongly advised to comply with medications, diet, follow-up visits Patient verbalized understanding --Tobacco dependence counseled on increased risk of stroke while smoking, and benefits of cessation, patient voiced understanding. -Time +10 minutes nicotine patch while inpatient --DVT prophylaxis ; Subcu heparin held for LP procedure Barrel Marker and recommendation noted and appreciated Closely monitor patient and adjust management as needed Possible discharge in 1 to 2 days if stable disposition : Follow-up ID evaluation and recommendations, follow occupational therapy evaluation recommendation home with family once medically stable Plan of care discussed with the patient, explained ID recommendations and lumbar puncture extensively Closely monitor the patient and adjust the management as needed 06/22/21: Scheduled for lumbar puncture today, aspirin, Plavix and heparin held CSF for analysis History Interval history: Patient scheduled for lumbar puncture today. Patient is n.p.o., aspirin Plavix Heparin held Hospitalist Physical - Constitutional Vitals: Temp Pulse Resp BP Pulse Ox 99.4 F 56 L 18 157/74 99 06/22/21 02:07 06/22/21 02:07 06/22/21 02:07 06/22/21 02:07 06/22/21 02:07 General appearance: Present: no acute distress, well-nourished HEART Score - HEART Score Troponin: Troponin T 0.014 ng/mL (0.00-0.029) 06/17/21 19:58 Results - Labs CBC & Chem 7: 06/18/21 05:37 06/18/21 05:37 Labs: Laboratory Last Values WBC 6.2 K/mm3 (4.5-11.0) 06/18/21 05:37 RBC 4.42 M/mm3 (3.65-5.03) 06/18/21 05:37 Hgb 13.6 gm/dl (10.1-14.3) 06/18/21 05:37 Hct 40.5 % (30.3-42.9) 06/18/21 05:37 MCV 92 fl (79-97) 06/18/21 05:37 MCH 31 pg (28-32) 06/18/21 05:37 MCHC 34 % (30-34) 06/18/21 05:37 RDW 12.4 % (13.2-15.2) L 06/18/21 05:37 Plt Count 148 K/mm3 (140-440) 06/18/21 05:37 Lymph % (Auto) 38.3 % (13.4-35.0) H 06/18/21 05:37 Hill % (Auto) 6.9 % (0.0-7.3) 06/18/21 05:37 Eos % (Auto) 2.2 % (0.0-4.3) 06/18/21 05:37 Baso % (Auto) 0.6 % (0.0-1.8) 06/18/21 05:37 Lymph # (Auto) 2.4 K/mm3 (1.2-5.4) 06/18/21 05:37 Hill # (Auto) 0.4 K/mm3 (0.0-0.8) 06/18/21 05:37 Eos # (Auto) 0.1 K/mm3 (0.0-0.4) 06/18/21 05:37 Baso # (Auto) 0.0 K/mm3 (0.0-0.1) 06/18/21 05:37 Seg Neutrophils % 52.0 % (40.0-70.0) 06/18/21 05:37 Seg Neutrophils # 3.2 K/mm3 (1.8-7.7) 06/18/21 05:37 PT 12.2 Sec. (12.2-14.9) 06/17/21 19:58 INR 0.81 (0.87-1.13) L 06/17/21 19:58 APTT 26.1 Sec. (24.2-36.6) 06/17/21 19:58 Thrombin Time 17.6 Sec. (15.1-19.6) 06/17/21 19:58 VBG pH 7.368 (7.320-7.420) 06/17/21 19:58 Sodium 139 mmol/L (137-145) 06/18/21 05:37 Potassium 3.7 mmol/L (3.6-5.0) 06/18/21 05:37 Chloride 102.5 mmol/L (98-107) 06/18/21 05:37 Carbon Dioxide 25 mmol/L (22-30) 06/18/21 05:37 Anion Gap 15 mmol/L 06/18/21 05:37 BUN 17 mg/dL (7-17) 06/18/21 05:37 Creatinine 1.2 mg/dL (0.6-1.2) 06/18/21 05:37 Estimated GFR 55 ml/min 06/18/21 05:37 BUN/Creatinine Ratio 14 % 06/18/21 05:37 Glucose 211 mg/dL (65-100) H 06/18/21 05:37 POC Glucose 340 mg/dL (70-105) H 06/21/21 20:35 Hemoglobin A1c 14.6 % (4-6) H 06/18/21 05:37 Calcium 9.3 mg/dL (8.4-10.2) 06/18/21 05:37 Magnesium 1.90 mg/dL (1.7-2.3) 06/17/21 19:58 Total Bilirubin 0.20 mg/dL (0.1-1.2) 06/17/21 19:58 AST 18 units/L (5-40) 06/17/21 19:58 ALT 27 units/L (7-56) 06/17/21 19:58 Alkaline Phosphatase 119 units/L (35-129) 06/17/21 19:58 Total Creatine Kinase 82 units/L (30-135) 06/17/21 19:58 Total Creatine Kinase 82 units/L (30-135) 06/17/21 19:58 CK-MB (CK-2) 1.9 ng/mL (0.0-4.0) 06/17/21 19:58 CK-MB (CK-2) Rel Index 2.3 (0-4) 06/17/21 19:58 Troponin T 0.014 ng/mL (0.00-0.029) 06/17/21 19:58 Total Protein 6.2 g/dL (6.3-8.2) L 06/17/21 19:58 Albumin 3.3 g/dL (3.9-5) L 06/17/21 19:58 Albumin/Globulin Ratio 1.1 % 06/17/21 19:58 Triglycerides 209 mg/dL (2-149) H 06/19/21 11:36 Cholesterol 210 mg/dL (50-199) H 06/19/21 11:36 LDL Cholesterol Direct 151 mg/dL (50-130) H 06/19/21 11:36 HDL Cholesterol 36 mg/dL (40-59) L 06/19/21 11:36 Cholesterol/HDL Ratio 5.83 % 06/19/21 11:36 Vitamin B12 553.6 pg/mL (211-911) 06/19/21 11:36 TSH 0.543 mlU/mL (0.270-4.200) 06/19/21 11:36 Urine Color Straw (Yellow) 06/17/21 22:49 Urine Turbidity Clear (Clear) 06/17/21 22:49 Urine pH 6.0 (5.0-7.0) 06/17/21 22:49 Ur Specific [place] 1.017 (1.003-1.030) 06/17/21 22:49 Urine Protein 30 mg/dl mg/dL (Negative) 06/17/21 22:49 Urine Glucose (UA) >=500 mg/dL (Negative) 06/17/21 22:49 Urine Ketones Neg mg/dL (Negative) 06/17/21 22:49 Urine Blood Neg (Negative) 06/17/21 22:49 Urine Nitrite Neg (Negative) 06/17/21 22:49 Urine Bilirubin Neg (Negative) 06/17/21 22:49 Urine Urobilinogen < 2.0 mg/dL (<2.0) 06/17/21 22:49 Ur Leukocyte Esterase Neg (Negative) 06/17/21 22:49 Urine WBC (Auto) 1.0 /HPF (0.0-6.0) 06/17/21 22:49 Urine RBC (Auto) < 1.0 /HPF (0.0-6.0) 06/17/21 22:49 U Epithel Cells (Auto) 4.0 /HPF (0-13.0) 06/17/21 22:49 Urine Bacteria (Auto) 1+ /HPF (Negative) 06/17/21 22:49 Plasma/Serum Alcohol < 0.01 % (0-0.07) 06/17/21 19:58 Syphilis IgG Antibody Reactive (NonReactive) A 06/19/21 11:36 RPR Titer 1:2 06/19/21 11:36 [place]/IV: Voiding Method Toilet Active Medications - Current Medications Current Medications: Generic Name Dose Route Start Last Admin Trade Name Freq PRN Reason Stop Dose Admin Acetaminophen 650 mg 06/17/21 21:46 Acetaminophen 325 Mg Tab PO Q4H PRN Pain MILD(1-3)/Fever >100.5/DEL TORO Atenolol 25 mg 06/21/21 10:00 06/21/21 10:28 Atenolol 25 Mg Tab PO 25 mg DAILY KAITLIN Administration Atorvastatin Calcium 40 mg 06/17/21 22:00 06/21/21 21:40 Atorvastatin 40 Mg Tab PO 40 mg QHS KAITLIN Administration Chlorthalidone 25 mg 06/18/21 14:00 06/21/21 10:28 Chlorthalidone 25 Mg Tab PO 25 mg QDAY KAITLIN Administration Dextrose 0 ml 06/17/21 21:46 Dextrose 50% In Water (25gm) 50 Ml Syringe IV Q30MIN PRN Hypoglycemia Protocol Hydralazine HCl 10 mg 06/21/21 10:00 Hydralazine 20 Mg/1 Ml Inj IV Q4HR PRN Hypertension Insulin Glargine 15 units 06/20/21 22:00 06/21/21 21:39 Insulin Glargine 100 Units/Ml SUB-Q 15 units QHS KAITLIN Administration Insulin Human Lispro 0 unit 06/17/21 22:00 06/21/21 18:29 Insulin Lispro 100 Unit/Ml SUB-Q Not Given ACHS [facility] Protocol Insulin Human Lispro 5 unit 06/20/21 16:30 06/21/21 18:29 Insulin Lispro 100 Unit/Ml SUB-Q Not Given AC [facility] Lisinopril 40 mg 06/21/21 10:00 06/21/21 10:29 Lisinopril 40 Mg Tab PO 40 mg QDAY KAITLIN Administration Losartan Potassium 12.5 mg 06/19/21 16:00 06/21/21 10:29 Losartan 25 Mg Tab PO 12.5 mg QDAY KAITLIN Administration Magnesium Hydroxide 30 ml 06/17/21 21:46 06/21/21 21:40 Magnesium Hydroxide (Mom) Oral Liqd Udc PO 30 ml Q4H PRN Administration Constipation Morphine Sulfate 2 mg 06/17/21 21:46 Morphine 2 Mg/1 Ml Inj IV Q4H PRN Pain, Moderate (4-6) Morphine Sulfate 4 mg 06/17/21 21:46 Morphine 4 Mg/1 Ml Inj IV Q4H PRN Pain , Severe (7-10) Nicotine 14 mg 06/18/21 15:00 06/21/21 10:31 Nicotine 14 Mg/24 Hr Patch TD Not Given QDAY KAITLIN Nifedipine 30 mg 06/19/21 10:00 06/21/21 10:29 Nifedipine Xl 30 Mg Tab PO 30 mg QDAY [facility]LIN Administration Ondansetron HCl 4 mg 06/17/21 21:46 Ondansetron 4 Mg/2 Ml Inj IV Q8H PRN Nausea And Vomiting Sodium Chloride 10 ml 06/17/21 22:00 06/21/21 10:29 Sodium Chloride 0.9% 10 Ml Flush Syringe IV 10 ml BID KAITLIN Administration Sodium Chloride 10 ml 06/17/21 21:46 Sodium Chloride 0.9% 10 Ml Flush Syringe IV PRN PRN LINE FLUSH Nutrition/Malnutrition Assess - Dietary Evaluation Nutrition/Malnutrition Findings: Nutrition Notes Start: 06/19/21 14:46 Freq: Status: Active Protocol: Document 06/19/21 14:46 KENN (Rec: 06/19/21 14:50 NHALL [id number]) Nutrition Notes Need for Assessment generated from: MD Order,Education Initial or Follow up Brief Note Current Diagnosis Diabetes,Hypertension Other Pertinent Diagnosis TIA, Tobacco dependency Current Diet Cardiac/Consistent CHO Labs/Tests A1C 14.6 Subjective/Other Information RD consulted for diet education. Pt says she moved from [facility] to [facility] 3 yrs ago and had no available resources; she received all of her care from [place] and says she had no where to go when she moved to [facility]. She has not had any medications for the past 3 yrs; she used to take Lantus and metformin and had controlled BS to the point that she only needed the metformin. She was diagnosed with DM 10 yrs ago and is familiar with food sources of CHO. She says her also had a stroke and she takes care of him. She denies the need for diet education at this time, but is happy that she has resources for medication now. Burn Absent Trauma Absent Minimum of two criteria No Nutrition Intervention Revisit per MD consult or patient Sign Off request:
--- NOTE | 2021-06-22 09:10 | Procedure Note ---
Date of procedure: 06/22/21 Pre-op diagnosis: neurosyphilis Post-op diagnosis: same Procedure: flouro guided lumbar puncture Findings: none Anesthesia: local Surgeon: NELLY MILLER Estimated blood loss: none Pathology: list (4 csf tubes containing 1.5-2mls each) Specimen disposition: to lab Condition: stable Disposition: floor
--- NOTE | 2021-06-22 09:15 | Fluoroscopy Report ---
LUMBAR PUNCTURE INDICATION : Neurosyphilis PROCEDURE: The risks (including but not limited to bleeding, infection, and spinal headache) and varghese efits were explained to the patient and informed consent was obtained. A time out procedure was perf ormed. The procedure site was prepped and draped in the usual sterile fashion and lidocaine was used for local anesthesia. Under fluoroscopic guidance, a 22-gauge spinal needle was advanced into the L3-4 interlaminar space. The opening pressure was 100 mm H2O which was calculated by adding the length of the needle (9 cm) to the height of the CSF column. 4 separate collection tubes were used to obtain 1.5-2.0 cc of CSF each . Samples were sent to the lab per the ordering physician specifications for further evaluation. The patient tolerated the procedure well with no complications. IMPRESSION: Successful lumbar puncture as outlined above. Opening pressure was 100 mm H20. Fluoroscopic time: 1 minute Number of fluoroscopic images: 1 Signer Name: Roger Spencer Jr, MD Signed: 06/22/2021 9:11 AM Workstation Name: [id number]
[2021-06-22] MEDS: INSULIN LISPRO 100 UNIT/ML SUB-Q SCH ×7 (09:55→21:49)
[2021-06-22] MEDS: atenoloL 25 MG TAB PO SCH (09:57)
[2021-06-22] MEDS: NICOTINE 14 MG/24 HR PATCH TD SCH (10:07)
[2021-06-22] MEDS: LISINOPRIL 40 MG TAB PO SCH (10:07)
[2021-06-22] MEDS: LOSARTAN 25 MG TAB PO SCH (10:08)
[2021-06-22] MEDS: NIFEdipine XL 30 MG TAB PO SCH (10:08)
[2021-06-22] MEDS: CHLORTHALIDONE 25 MG TAB PO SCH (10:48)
[2021-06-22 11:13] LABS: Appearance,CSF Clear
[2021-06-22 11:14] LABS: Total Cells Counted 10 /mm3
[2021-06-22 11:16] LABS: Red Blood Cell,CSF 12 /mm3 (0-0); White Blood Cell,CSF 3 /mm3 (1-10)
[2021-06-22 11:17] LABS: Basophils CSF 0 %
[2021-06-22 12:36] LABS: Glucose,CSF 166 mg/dL
--- NOTE | 2021-06-22 17:13 | Progress Note ---
Assessment and Plan Cultures: None RPR 1:2 A/P: 60-year-old female past medical history hypertension, diabetes, noncompliance with medications now with: #Late latent syphilis: With low RPR. Mild neurologic complaints most likely explained by acute infarction, completed lumbar puncture. CSF with 3 white cells, less likely neurosyphilis though VDRL remains pending #Acute CVA: Improving. As seen on MRI #Diabetes: tight glycemic control for best outcomes. Recs: -Follow-up CSF VDRL -If CSF VDRL negative, ok to give IM penicillin 3.2 million units weekly x 3 weeks (can be completed with department of health) Thank you for the consult, we will continue to follow. Zachary Mane MD [facility] O: [phone] F: [phone] Subjective Date of service: 06/22/21 Interval history: Afebrile, normal white count. Pending CSF VDRL. Only 3 WBC though, less likely for neurosyphilis. Objective - Exam Narrative Exam: Physical Exam: Constitutional: Alert, cooperative. No acute distress Head, Ears, Nose: Normocephalic, atraumatic. External ears, nose normal Eyes: Conjunctivae/corneas clear. No icterus. No ptosis. Neck: Supple, no meningeal signs Oral: dentition fair, no thrush Cardiovascular: S1, S2 normal. Respiratory: Good air entry, clear to auscultation bilaterally GI: Soft, non-tender; bowel sounds normal. No peritoneal signs. Musculoskeletal: No pedal edema, no cyanosis. Skin: No rash or abscess Hem/Lymphatic: No palpable cervical or supraclavicular nodes. No lymphangitis Psych: Mood ok. Affect normal Neurological: Awake, alert, oriented. No gross abnormality - Constitutional Vitals: Vital Signs Temp Pulse Resp BP Pulse Ox 98.3 F 67 18 142/45 99 06/22/21 10:23 06/22/21 10:23 06/22/21 02:07 06/22/21 10:23 06/22/21 10:00 Temperature -Last 24 Hours Temperature 98.3 F Temperature 99.4 F Temperature 98.6 F - Labs CBC & Chem 7: 06/18/21 05:37 06/18/21 05:37 Labs: Abnormal lab results 06/21/21 06/22/21 06/22/21 Range/Units 20:35 07:39 11:40 POC Glucose 340 H 278 H 172 H (70-105) mg/dL 06/22/21 Range/Units 16:08 POC Glucose 282 H (70-105) mg/dL
[2021-06-22] MEDS ORDERED: PENICILLIN G BENZATHINE 1.2 MILLION UNIT/2 ML INJ IM ONE (18:53)
--- NOTE | 2021-06-22 20:18 | Discharge Summary ---
Providers - Providers Date of Admission: 06/19/21 10:00 Date of discharge: 06/23/21 Attending physician: LONG REGAN 06/17/21 21:46 Consult to Physician [CONS] Routine Comment: Consulting Provider: NICOLAS STOREY Physician Instructions: Reason For Exam: TIA 06/17/21 21:47 Consult to Dietitian/Nutrition [CONS] Routine Physician Instructions: Reason For Exam: Reason for Consult: Diet education 06/17/21 21:53 Occupational Therapy Evaluate and Treat [CONS] Routine Comment: Reason For Exam: Neuro deficits Physical Therapy Evaluation and Treat [CONS] Routine Comment: Reason For Exam: Neuro deficits 06/21/21 08:14 Consult to Physician [CONS] Routine Comment: Consulting Provider: SOLE MENDEZ Physician Instructions: Reason For Exam: Positive syphilis IgG antibody/history of CVA Primary care physician: BOSTON CUTTER Hospitalization Condition: Good Disposition: 01 HOME / SELF CARE / HOMELESS Time spent for discharge: 35 min Exam - Constitutional Vitals: Temp Pulse Resp BP Pulse Ox 98.3 F 57 L 18 142/45 99 06/22/21 10:23 06/22/21 18:00 06/22/21 02:07 06/22/21 10:23 06/22/21 10:00 Plan Diet: diabetic Additional Instructions: Advised to see private neurologist in 1 week. Advised to see ID in 1 week. If you have worsening symptoms contact MD or go to the nearest emergency room as needed Follow up with: PRIMARY MD KIMBERLY [Primary Care Provider] - 3-5 Days KRISTIN WOODS MD [Staff Physician] - 7 Days HERON GRIFFITH MD [Staff Physician] - 7 Days Prescriptions: Aspirin [Aspirin BABY CHEW TAB] 81 mg PO QDAY #30 tab.chew Nicotine [Habitrol] 14 mg TD QDAY #30 patch AtorvaSTATin [Lipitor] 40 mg PO QHS #30 tablet Metformin HCl [metFORMIN] 1,000 mg PO BID #60 tab NIFEdipine XL [Procardia Xl] 30 mg PO QDAY #30 tablet atenoloL [Tenormin] 25 mg PO DAILY #30 tab Chlorthalidone [Thalitone] 25 mg PO QDAY #30 tablet lisinopriL [Zestril TAB] 40 mg PO QDAY #30 tablet
[2021-06-22] MEDS: INSULIN GLARGINE 100 UNITS/ML SUB-Q SCH (21:48)
[2021-06-23 08:56] VITALS: BP 154/87
[2021-06-23] MEDS ORDERED: metFORMIN 500 MG TAB PO SCH (09:00)
[2021-06-23] MEDS: LISINOPRIL 40 MG TAB PO SCH (09:13)
[2021-06-23] MEDS: atenoloL 25 MG TAB PO SCH (09:14)
[2021-06-23] MEDS: NICOTINE 14 MG/24 HR PATCH TD SCH ×2 (09:14→10:26)
[2021-06-23] MEDS: CHLORTHALIDONE 25 MG TAB PO SCH (09:14)
[2021-06-23] MEDS: LOSARTAN 25 MG TAB PO SCH (09:14)
[2021-06-23] MEDS: INSULIN LISPRO 100 UNIT/ML SUB-Q SCH ×2 (09:16→09:17)
[2021-06-23] MEDS: NIFEdipine XL 30 MG TAB PO SCH (09:18)
[2021-06-23] MEDS ORDERED: NON-FORMULARY EACH (Metformin Hcl [Metformin] 1,000 MG Tablet) PO SCH (10:00)
[2021-06-23] MEDS ORDERED: CLOPIDOGREL 75 MG TAB PO SCH (10:00)
[2021-06-23] MEDS ORDERED: PENICILLIN G BENZATHINE 1.2 MILLION UNIT/2 ML INJ IM NR (10:00)
[2021-06-23] MEDS ORDERED: ASPIRIN 81 MG TAB CHEW PO SCH (10:00)
== END 2021-06-23 13:30 | disposition home or self-care (01) | DRG 65 ==
LOC: ED 18:28 → 4A 21:20 → OBSVTOIN 06-19 10:00
PROVIDERS: ADMIT Internal Medicine Geriatric Medicine; ATTEND Internal Medicine
PROC: 009U3ZX Drainage of Spinal Canal, Percutaneous Approach, Diagnostic (ICD-10-PCS; principal; 2021-06-22)
PROC: B01B1ZZ Fluoroscopy of Spinal Cord using Low Osmolar Contrast (ICD-10-PCS; 2021-06-22)
DX: I63.9 Cerebral infarction, unspecified (principal); I50.30 Unspecified diastolic (congestive) heart failure; G81.91 Hemiplegia, unspecified affecting right dominant side; N28.9 Disorder of kidney and ureter, unspecified; Z79.82 Long term (current) use of aspirin; Z79.899 Other long term (current) drug therapy; F17.200 Nicotine dependence, unspecified, uncomplicated; E11.65 Type 2 diabetes mellitus with hyperglycemia; I11.0 Hypertensive heart disease with heart failure; I16.0 Hypertensive urgency; Z91.19 Patient's noncompliance with other medical treatment and regimen
CPT/HCPCS: 36415; 62270; 62328; 70450; 70496; 70498; 70551; 71045; 80048; 80053; 80061; 80320; 81001; 82550; 82553; 82607; 82805; 82947; 82962; 83036; 83735; 84160; 84443; 84484; 85025; 85610; 85670; 85730; 86592; 86593; 87116; 89051; 93005; 93306; 93880; 99285; G0378; Q0162; Q9967; G0480; J0360; J0561; J1644; J1815; J7030

== ENCOUNTER 2021-07-21 11:15 | Emergency (ER) | payer SELFPAY ==
[2021-07-21] MEDS ORDERED: cloNIDine 0.1 MG TAB PO ONE (12:29)
[2021-07-21 13:53] LABS: Basophils % (Auto) 0.5 % (0.0-1.8); Eosinophils # (Auto) 0.2 K/mm3 (0.0-0.4); Eosinophils % (Auto) 2.8 % (0.0-4.3); Hemoglobin 12.6 gm/dl (10.1-14.3); Lymphocytes # (Auto) 2.5 K/mm3 (1.2-5.4); Lymphocytes % (Auto) 40.3 % (13.4-35.0); Mean Corpuscular HGB Conc 34 % (30-34); Mean Corpuscular Volume 91 fl (79-97); Monocytes # (Auto) 0.4 K/mm3 (0.0-0.8); Platelet Count 178 K/mm3 (140-440); Red Blood Count 4.09 M/mm3 (3.65-5.03); Red Cell Distribution Width 12.6 % (13.2-15.2)
--- NOTE | 2021-07-21 14:38 | Emergency Department Report ---
ED General Adult HPI - General Chief complaint: High BP Stated complaint: HIGH BLOOD PRESSURE 219/105 Time Seen by Provider: 07/21/21 12:17 Source: patient Mode of arrival: Ambulatory Limitations: No Limitations - History of Present Illness Initial comments: 60-year-old female with a past medical history of hypertension, diabetes, CHF and admission for CVA here in May 2021 presents to the hospital complaining of asymptomatic hypertension. Patient states that she went to a primary care office and they refused to see her due to her elevated blood pressure. Patient was prescribed to her current medication upon discharge from the hospital on after stroke. Patient admits to not taking her medications as prescribed and has been skipping doses in an effort to make her medication last longer since she did not have a primary care doctor. Patient has residual mild slurred speech and mild right-sided weakness since CVA which is unchanged. As per medical record patient also had a spinal tap that was positive for syphilis IgG G antibody was supposed to follow-up as an outpatient. Patient denies headache, blurred vision, chest pain, shortness of breath, or leg edema Severity scale (0 -10): 0 - Related Data Home Medications Medication Instructions Recorded Confirmed Last Taken Cholecalciferol Vit D3 [Vitamin D3 1,000 unit PO QDAY 03/11/20 06/19/21 06/15/21 1,000 UNIT TAB] Previous Rx's Medication Instructions Recorded Last Taken Type Nicotine [Habitrol] 14 mg TD QDAY #30 patch 06/23/21 Unknown Rx Aspirin [Aspirin BABY CHEW TAB] 81 mg PO QDAY #30 tab.chew 07/21/21 Unknown Rx AtorvaSTATin [Lipitor] 40 mg PO QHS #30 tablet 07/21/21 Unknown Rx Chlorthalidone [Thalitone] 25 mg PO QDAY #30 tablet 07/21/21 Unknown Rx Clopidogrel [Plavix] 75 mg PO QDAY #30 tablet 07/21/21 Unknown Rx Metformin HCl [metFORMIN] 1,000 mg PO BID #60 tab 07/21/21 Unknown Rx NIFEdipine XL [Procardia Xl] 30 mg PO QDAY #30 tablet 07/21/21 Unknown Rx atenoloL [Tenormin] 25 mg PO DAILY #30 tab 07/21/21 Unknown Rx lisinopriL [Zestril TAB] 40 mg PO QDAY #30 tablet 07/21/21 Unknown Rx Allergies Allergy/AdvReac Type Severity Reaction Status Date / Time No Known Allergies Allergy Verified 06/19/21 14:47 ED Review of Systems ROS: Stated complaint: HIGH BLOOD PRESSURE 219/105 Other details as noted in HPI Comment: All other systems reviewed and negative ED Past Medical Hx - Past Medical History Hx Hypertension: Yes Hx Congestive Heart Failure: Yes (ef 40-45% with diastolic dysfunction) Hx Diabetes: Yes - Social History Smoking Status: Current Every Day Smoker - Medications Home Medications: Home Medications Medication Instructions Recorded Confirmed Last Taken Type Cholecalciferol Vit D3 [Vitamin D3 1,000 unit PO QDAY 03/11/20 06/19/21 06/15/21 History 1,000 UNIT TAB] Nicotine [Habitrol] 14 mg TD QDAY #30 patch 06/23/21 Unknown Rx Aspirin [Aspirin BABY CHEW TAB] 81 mg PO QDAY #30 tab.chew 07/21/21 Unknown Rx AtorvaSTATin [Lipitor] 40 mg PO QHS #30 tablet 07/21/21 Unknown Rx Chlorthalidone [Thalitone] 25 mg PO QDAY #30 tablet 07/21/21 Unknown Rx Clopidogrel [Plavix] 75 mg PO QDAY #30 tablet 07/21/21 Unknown Rx Metformin HCl [metFORMIN] 1,000 mg PO BID #60 tab 07/21/21 Unknown Rx NIFEdipine XL [Procardia Xl] 30 mg PO QDAY #30 tablet 07/21/21 Unknown Rx atenoloL [Tenormin] 25 mg PO DAILY #30 tab 07/21/21 Unknown Rx lisinopriL [Zestril TAB] 40 mg PO QDAY #30 tablet 07/21/21 Unknown Rx ED Physical Exam - General Limitations: No Limitations - Other Other exam information: General: No acute distress Head: Atraumatic Eyes: normal appearance ENT: Moist mucous membranes Neck: Normal appearance, no midline tenderness Chest: Clear to auscultation bilaterally CV: Regular rate and rhythm Abdomen: Soft, normal bowel sounds, nontender, nondistended, no rebound or guarding Back: Normal inspection Extremity: Normal inspection, full range of motion Neuro: Alert O x 3, no facial asymmetry, speech clear with minimal slurring, equal handgrip and foot dorsiflexion Psych: Appropriate behavior Skin: No rash ED Course Vital Signs 07/21/21 07/21/21 07/21/21 12:30 12:36 12:46 Temperature 98.9 F Pulse Rate 68 64 Respiratory 18 19 Rate Blood Pressure 203/85 Blood Pressure 203/85 [Right] O2 Sat by Pulse 99 100 99 Oximetry 07/21/21 07/21/21 07/21/21 13:00 13:15 13:31 Temperature Pulse Rate 63 65 70 Respiratory 18 19 18 Rate Blood Pressure 186/85 184/84 192/94 Blood Pressure [Right] O2 Sat by Pulse 100 99 99 Oximetry 07/21/21 07/21/21 07/21/21 13:45 14:01 14:15 Temperature Pulse Rate 62 65 63 Respiratory 17 18 20 Rate Blood Pressure 205/88 200/91 176/80 Blood Pressure [Right] O2 Sat by Pulse 99 99 100 Oximetry - Reevaluation(s) Reevaluation #1: 07/21/21 14:52 bp 183/81, pt asymptomatic - Consultations Consultation #1: 07/21/21 14:34 Case discussed with pyridine recovery operator on-call M regarding patient's mild renal insufficiency with elevated BUN/creatinine. He states that patient to continue lisinopril and diuretic. Recommend you get plenty of water and follow-up in the office ED Medical Decision Making - Lab Data Result diagrams: 07/21/21 13:31 07/21/21 13:31 Lab Results 07/21/21 07/21/21 Range/Units 13:31 13:31 WBC 6.1 (4.5-11.0) K/mm3 RBC 4.09 (3.65-5.03) M/mm3 Hgb 12.6 (10.1-14.3) gm/dl Hct 37.0 (30.3-42.9) % MCV 91 (79-97) fl MCH 31 (28-32) pg MCHC 34 (30-34) % RDW 12.6 L (13.2-15.2) % Plt Count 178 (140-440) K/mm3 Lymph % (Auto) 40.3 H (13.4-35.0) % [place] % (Auto) 7.0 (0.0-7.3) % Eos % (Auto) 2.8 (0.0-4.3) % Baso % (Auto) 0.5 (0.0-1.8) % Lymph # (Auto) 2.5 (1.2-5.4) K/mm3 Florence # (Auto) 0.4 (0.0-0.8) K/mm3 Eos # (Auto) 0.2 (0.0-0.4) K/mm3 Baso # (Auto) 0.0 (0.0-0.1) K/mm3 Seg Neutrophils % 49.4 (40.0-70.0) % Seg Neutrophils # 3.0 (1.8-7.7) K/mm3 Sodium 141 (137-145) mmol/L Potassium 3.9 (3.6-5.0) mmol/L Chloride 106.5 (98-107) mmol/L Carbon Dioxide 21 L (22-30) mmol/L Anion Gap 17 mmol/L BUN 35 H (7-17) mg/dL Creatinine 1.6 H (0.6-1.2) mg/dL Estimated GFR 40 ml/min BUN/Creatinine Ratio 22 % Glucose 88 (65-100) mg/dL Calcium 10.0 (8.4-10.2) mg/dL - Medical Decision Making 60-year-old presents to the hospital with elevated blood pressure secondary to medication noncompliance. Mild renal insufficiency noted with a elevated BUN to creatinine ratio. No medication adjustment recommended by nephrology at this time. Patient will be instructed to drink plenty of water, take medications as prescribed, and follow-up with PMD and pyridine recovery operator as an outpatient Critical Care Time: No Critical care attestation.: If time is entered above; I have spent that time in minutes in the direct care of this critically ill patient, excluding procedure time. ED Disposition Clinical Impression: Uncontrolled hypertension, Noncompliance with medication regimen, Mild renal insufficiency, Diabetes mellitus, History of CVA (cerebrovascular accident) Disposition: 01 HOME / SELF CARE / HOMELESS Is pt being admited?: No Does the pt Need Aspirin: No Condition: Stable Instructions: Hypertension (ED), Hypertension, Adult, Bcbe-[id number], Acute Kidney Injury, Adult, Diabetes Mellitus Type 2 in Adults (ED) Additional Instructions: Take the medication as prescribed. Follow-up with your doctor or doctor/clinic provided. Return if symptoms worsen as indicated by your discharge instructions. You have mild kidney injury likely secondary to dehydration. It is important you drink plenty of water for hydration and follow-up with the [facility] specialist as an outpatient. Prescriptions: Aspirin [Aspirin BABY CHEW TAB] 81 mg PO QDAY #30 tab.chew AtorvaSTATin [Lipitor] 40 mg PO QHS #30 tablet Metformin HCl [metFORMIN] 1,000 mg PO BID #60 tab Clopidogrel [Plavix] 75 mg PO QDAY #30 tablet NIFEdipine XL [Procardia Xl] 30 mg PO QDAY #30 tablet atenoloL [Tenormin] 25 mg PO DAILY #30 tab Chlorthalidone [Thalitone] 25 mg PO QDAY #30 tablet lisinopriL [Zestril TAB] 40 mg PO QDAY #30 tablet Referrals: PRIMARY CARE, [Primary Care Provider] - 3-5 Days AWAIS KAUFMAN MD [Staff Physician] - 3-5 Days (nephrology ) Time of Disposition: 14:53
[2021-07-21 15:51] VITALS: BP 171/81
== END 2021-07-21 16:00 | disposition home or self-care (01) ==
LOC: ED 11:15
DX: I11.0 Hypertensive heart disease with heart failure (principal); I50.9 Heart failure, unspecified; E11.9 Type 2 diabetes mellitus without complications; N28.9 Disorder of kidney and ureter, unspecified; F17.200 Nicotine dependence, unspecified, uncomplicated; Z91.14 Patient's other noncompliance with medication regimen; Z86.73 Personal history of transient ischemic attack (TIA), and cerebral infarction without residual deficits; Z79.899 Other long term (current) drug therapy
CPT/HCPCS: 36415; 80048; 85025; 99283

== ENCOUNTER 2021-08-03 13:46 | Emergency (ER) | payer SELFPAY ==
[2021-08-03] MEDS ORDERED: cloNIDine 0.1 MG TAB PO ONE (16:07)
--- NOTE | 2021-08-03 16:09 | Event Note ---
ED Screening Note Date of service: 08/03/21 Time: 16:07 ED Screening Note: 60-year-old female with past medical history of hypertension diabetes and stroke in May 2021 presented to the emergency department for evaluation of elevated blood pressure for the past 2 weeks which she noted was even higher today with development of dizziness headache. She states that she was seen here 2 weeks ago and had her medicines refilled but did not get Procardia refilled. This initial assessment/diagnostic orders/clinical plan/treatment(s) is/are subject to change based on patients health status, clinical progression and re- assessment by fellow clinical providers in the ED. Further treatment and workup at subsequent clinical providers discretion. Patient/guardian urged not to elope from the ED as their condition may be serious if not clinically assessed and managed. Initial orders include:
[2021-08-03 16:38] LABS: Hematocrit 43.8 % (30.3-42.9); Hemoglobin 14.7 gm/dl (10.1-14.3); Mean Corpuscular HGB Conc 34 % (30-34); Mean Corpuscular Volume 91 fl (79-97); Platelet Count 196 K/mm3 (140-440)
--- NOTE | 2021-08-03 16:49 | XRay Report ---
CHEST 2 VIEWS INDICATION / CLINICAL INFORMATION: Chest pain. COMPARISON: 06/17/21. FINDINGS: SUPPORT DEVICES: None. HEART / MEDIASTINUM: The heart size and pulmonary vasculature are normal. The aorta is normal in dariel tayla. LUNGS / PLEURA: No significant pulmonary or pleural abnormality. No pneumothorax. ADDITIONAL FINDINGS: No significant additional findings. IMPRESSION: No acute abnormality or significant change. Signer Name: Luis Hernandez MD Signed: 08/03/2021 4:43 PM Workstation Name: [id number]
[2021-08-03 17:00] LABS: Albumin 4.5 g/dL (3.9-5); Calcium 10.3 mg/dL (8.4-10.2)
[2021-08-03 17:05] LABS: INR 0.78 (0.87-1.13)
[2021-08-03 17:06] LABS: Partial Thromboplastin Time 26.6 Sec. (24.2-36.6)
--- NOTE | 2021-08-03 17:20 | Cat Scan Report ---
CT BRAIN: 08/03/2021 INDICATION / CLINICAL INFORMATION: dizziness. COMPARISON: None available. FINDINGS: BRAIN/INTRACRANIAL STRUCTURES: Unenhanced CT images of the brain were obtained. . Ventricles and sulci are within normal limits of size and shape for a patient of this age. Some chronic white matter hypoattenuation is present, consistent with some chronic small vessel ische yehuda change. There is a 1.2 cm area of hypoattenuation in the periphery of the right cerebellar cortex, consistent with ischemic injury of indeterminate age. No other areas of cortical hypoattenuation are noted. EXTRACRANIAL STRUCTURES: Unremarkable. IMPRESSION: Right peripheral cerebellar hypodensity of indeterminate age. Microangiopathic white matter hypodensity in the cerebral hemispheric white matter. All CT scans at this location are performed using dose reduction to ALARA by means of automated expos ure control. Signer Name: Chuck Dave MD Signed: 08/03/2021 5:15 PM Workstation Name: [id number]
[2021-08-03 17:21] VITALS: BP 212/106
--- NOTE | 2021-08-03 17:55 | Emergency Department Report ---
ED General Adult HPI - General Chief complaint: High BP Stated complaint: HIGH BLOOD PRESSURE Time Seen by Provider: 08/03/21 16:27 Source: patient Mode of arrival: Ambulatory Limitations: No Limitations - History of Present Illness Initial comments: Chief complaint: My blood pressure stays high." HPI: This is a 60-year-old female with history of severe hypertension, CVA, chronic kidney disease, diabetes mellitus who presents with elevated blood pres sure for the past 1 month. She has been without Procardia for at least 2 weeks. Patient is on four antihypertensive medication. She has been without primary care since moving to [facility]. She was formally cared for by [facility]. She has had intermittent lightheadedness. She has had intermittent headache. She is symptom-free at this time. -: Gradual, week(s) (2 weeks) Location: head Severity scale (0 -10): 5 Consistency: intermittent, now resolved Improves with: none Worsens with: none Associated Symptoms: other (Lightheadedness dizziness) Treatments Prior to Arrival: none - Related Data Home Medications Medication Instructions Recorded Confirmed Last Taken Cholecalciferol Vit D3 [Vitamin D3 1,000 unit PO QDAY 03/11/20 06/19/21 06/15/21 1,000 UNIT TAB] Previous Rx's Medication Instructions Recorded Last Taken Type Nicotine [Habitrol] 14 mg TD QDAY #30 patch 06/23/21 Unknown Rx Aspirin [Aspirin BABY CHEW TAB] 81 mg PO QDAY #30 tab.chew 07/21/21 Unknown Rx AtorvaSTATin [Lipitor] 40 mg PO QHS #30 tablet 07/21/21 Unknown Rx Chlorthalidone [Thalitone] 25 mg PO QDAY #30 tablet 07/21/21 Unknown Rx Clopidogrel [Plavix] 75 mg PO QDAY #30 tablet 07/21/21 Unknown Rx Metformin HCl [metFORMIN] 1,000 mg PO BID #60 tab 07/21/21 Unknown Rx NIFEdipine XL [Procardia Xl] 30 mg PO QDAY #30 tablet 07/21/21 Unknown Rx atenoloL [Tenormin] 25 mg PO DAILY #30 tab 07/21/21 Unknown Rx lisinopriL [Zestril TAB] 40 mg PO QDAY #30 tablet 07/21/21 Unknown Rx NIFEdipine XL [Procardia Xl] 30 mg PO QDAY #30 tablet 08/03/21 Unknown Rx Allergies Allergy/AdvReac Type Severity Reaction Status Date / Time No Known Allergies Allergy Verified 08/03/21 15:34 ED Review of Systems ROS: Stated complaint: HIGH BLOOD PRESSURE Other details as noted in HPI Comment: All other systems reviewed and negative Constitutional: denies: chills, fever, malaise Respiratory: denies: cough, shortness of breath Cardiovascular: denies: chest pain Gastrointestinal: denies: abdominal pain, nausea, vomiting ED Past Medical Hx - Past Medical History Previous Medical History?: Yes Hx Hypertension: Yes Hx Congestive Heart Failure: Yes (ef 40-45% with diastolic dysfunction) Hx Diabetes: Yes - Social History Smoking Status: Current Every Day Smoker Substance Use Type: None - Medications Home Medications: Home Medications Medication Instructions Recorded Confirmed Last Taken Type Cholecalciferol Vit D3 [Vitamin D3 1,000 unit PO QDAY 03/11/20 06/19/21 06/15/21 History 1,000 UNIT TAB] Nicotine [Habitrol] 14 mg TD QDAY #30 patch 06/23/21 Unknown Rx Aspirin [Aspirin BABY CHEW TAB] 81 mg PO QDAY #30 tab.chew 07/21/21 Unknown Rx AtorvaSTATin [Lipitor] 40 mg PO QHS #30 tablet 07/21/21 Unknown Rx Chlorthalidone [Thalitone] 25 mg PO QDAY #30 tablet 07/21/21 Unknown Rx Clopidogrel [Plavix] 75 mg PO QDAY #30 tablet 07/21/21 Unknown Rx Metformin HCl [metFORMIN] 1,000 mg PO BID #60 tab 07/21/21 Unknown Rx NIFEdipine XL [Procardia Xl] 30 mg PO QDAY #30 tablet 07/21/21 Unknown Rx atenoloL [Tenormin] 25 mg PO DAILY #30 tab 07/21/21 Unknown Rx lisinopriL [Zestril TAB] 40 mg PO QDAY #30 tablet 07/21/21 Unknown Rx NIFEdipine XL [Procardia Xl] 30 mg PO QDAY #30 tablet 08/03/21 Unknown Rx ED Physical Exam - General Limitations: No Limitations General appearance: alert, in no apparent distress - Head Head exam: Present: atraumatic, normocephalic - Eye Eye exam: Present: normal appearance - ENT ENT exam: Present: mucous membranes moist - Neck Neck exam: Present: normal inspection, full ROM - Respiratory Respiratory exam: Present: normal lung sounds bilaterally. Absent: respiratory distress, wheezes, rales, rhonchi - Cardiovascular Cardiovascular Exam: Present: regular rate, normal rhythm, normal heart sounds. Absent: systolic murmur, diastolic murmur, rubs, gallop - GI/Abdominal GI/Abdominal exam: Present: soft, normal bowel sounds. Absent: distended, tenderness, guarding, rebound - Extremities Exam Extremities exam: Present: normal inspection - Back Exam Back exam: Present: normal inspection - Neurological Exam Neurological exam: Present: alert, oriented X3, CN II-XII intact, normal gait - Expanded Neurological Exam Expanded Patient oriented to: Present: person, place, time Cranial nerves: EOM's Intact: Normal Cerebellar function: Finger to Nose: Normal Sensory exam: Upper Extremity Light Touch: Normal Motor strength exam: RUE: 5, LUE: 5, RLE: 5, LLE: 5 - Psychiatric Psychiatric exam: Present: normal affect, normal mood - Skin Skin exam: Present: warm, dry, intact, normal color. Absent: rash ED Course Vital Signs 08/03/21 08/03/21 15:38 17:15 Temperature 98.7 F Pulse Rate 68 78 Respiratory 20 Rate Blood Pressure 233/114 212/106 O2 Sat by Pulse 96 Oximetry ED Medical Decision Making - Lab Data Result diagrams: 08/03/21 16:21 08/03/21 16:21 Laboratory Results - last 24 hr 08/03/21 08/03/21 08/03/21 16:21 16:21 16:21 WBC 7.4 RBC 4.80 Hgb 14.7 H Hct 43.8 H MCV 91 MCH 31 MCHC 34 RDW 13.0 L Plt Count 196 PT 11.8 L INR 0.78 L APTT 26.6 Sodium 139 Potassium 4.2 Chloride 104.3 Carbon Dioxide 21 L Anion Gap 18 BUN 41 H Creatinine 1.4 H Estimated GFR 46 BUN/Creatinine Ratio 29 Glucose 93 Calcium 10.3 H Total Bilirubin 0.40 AST 21 ALT 19 Alkaline Phosphatase 72 Troponin T 0.024 Total Protein 8.3 H Albumin 4.5 Albumin/Globulin Ratio 1.2 - Radiology Data Radiology results: report reviewed Patient Name: MAURICE LANDAVERDE Gender: Female Date of : 1960 Referring Provider: JOY LOPEZ Organization: [facility] Accession Number: [id number] Requested Date: August 03, 2021 16:13 Report Status: Final Requested Procedure: 1 Procedure Description: XR chest routine 2V Modality: XR Findings Reporting MD: Luis Hernandez Dictation Time: August 03, 2021 15:43 Occupational Medicine Specialist: Not available Cnc Programmer Date: CHEST 2 VIEWS INDICATION / CLINICAL INFORMATION: Chest pain. COMPARISON: 06/17/21. FINDINGS: SUPPORT DEVICES: None. HEART / MEDIASTINUM: The heart size and pulmonary vasculature are normal. The aorta is normal in caliber. LUNGS / PLEURA: No significant pulmonary or pleural abnormality. No pneumothorax. ADDITIONAL FINDINGS: No significant additional findings. IMPRESSION: No acute abnormality or significant change. Signer Name: Luis Hernandez MD Signed: 08/03/2021 3:43 PM Workstation Name: [id number] Patient Name: MAURICE LANDAVERDE Gender: Female Date of : 1960 Referring Provider: JOY LOPEZ Organization: [facility] Accession Number: [id number] Requested Date: August 03, 2021 16:06 Report Status: Final Requested Procedure: 1 Procedure Description: CT head/brain wo con Modality: CT Findings Reporting MD: Chuck Dave Dictation Time: August 03, 2021 16:15 Occupational Medicine Specialist: Not available Cnc Programmer Date: CT BRAIN: 08/03/2021 INDICATION / CLINICAL INFORMATION: dizziness. COMPARISON: None available. FINDINGS: BRAIN/INTRACRANIAL STRUCTURES: Unenhanced CT images of the brain were obtained. . Ventricles and sulci are within normal limits of size and shape for a patient of this age. Some chronic white matter hypoattenuation is present, consistent with some chronic small vessel ischemic change. There is a 1.2 cm area of hypoattenuation in the periphery of the right cerebellar cortex, consistent with ischemic injury of indeterminate age. No other areas of cortical hypoattenuation are noted. EXTRACRANIAL STRUCTURES: Unremarkable. IMPRESSION: Right peripheral cerebellar hypodensity of indeterminate age. Microangiopathic white matter hypodensity in the cerebral hemispheric white matter. All CT scans at this location are performed using dose reduction to ALARA by means of automated exposure control. Signer Name: Chuck Dave MD Signed: 08/03/2021 4:15 PM Workstation Name: [id number] - Medical Decision Making Hypertensive urgency: Work-up revealed baseline kidney function CBC within normal limits chemistry otherwise unremarkable. CT revealed evidence of right cerebral blood hypodensity. Patient was recently admitted in May for CVA. She does not have clinical findings of acute CVA. Her medication regimen was optimized just 1 month ago. In May CT angiogram of the head and neck did not reveal large vessel occlusion or significant stenosis. Clonidine 0.1 decrease blood pressure systolic from 233 to 212 mmHg. We will give an additional 0.2 mg of clonidine prior to discharge. Hypertension Critical care attestation.: If time is entered above; I have spent that time in minutes in the direct care of this critically ill patient, excluding procedure time. ED Disposition Clinical Impression: Hypertensive urgency Disposition: 01 HOME / SELF CARE / HOMELESS Is pt being admited?: No Does the pt Need Aspirin: No Condition: Stable Instructions: Managing Your Hypertension Prescriptions: NIFEdipine XL [Procardia Xl] 30 mg PO QDAY #30 tablet Referrals: PRIMARY CAREMD [Primary Care Provider] - 3-5 Days Forms: Work/School Release Form(ED)
[2021-08-03] MEDS ORDERED: cloNIDine 0.2 MG TAB PO ONE (18:04)
== END 2021-08-03 23:30 | disposition home or self-care (01) ==
LOC: ED 13:46
DX: I16.0 Hypertensive urgency (principal); F17.200 Nicotine dependence, unspecified, uncomplicated; I10 Essential (primary) hypertension; E11.8 Type 2 diabetes mellitus with unspecified complications
CPT/HCPCS: 36415; 70450; 71046; 80053; 84484; 85027; 85610; 85730; 99284